=== PATIENT | female | born 1935 | race Caucasian/White ===

== ENCOUNTER 2018-09-07 10:25 | Outpatient (CLI) | payer MEDICARE ==
[~2018-09-07 10:25] MED LIST: Gadobenate Dimeglumine 529 MG/1 ML (20ML VIAL) ONE
--- NOTE | 2018-09-07 13:02 | MRI ---
MRI BRAIN WITH AND WITHOUT CONTRAST: HISTORY: Unspecified sensorineural hearing loss. Sudden onset of right ear hearing loss after sneezing in Jun. COMPARISON: None. TECHNIQUE: A brain MRI is performed with and without intravenous Gadolinium administration. Multisequential, mu ltiplanar imaging is performed. FINDINGS: BRAIN MRI: Calvarium has a normal T1 marrow signal intensity. Midline brain parenchymal structures are unremark able. There are T1 isointense, T2 hypointense lesions scattered throughout the scalp which do exhibit assoc iated enhancement. Cutaneous hemangiomas or other dermal lesions should be considered. There is no parenchymal mass, mass effect, or midline shift. Brain volume is age appropriate. Corti campos ramirez-white matter differentiation is preserved. The ventricles and sulci are patent and symmetric. Central arterial flow voids are maintained. Absent restricted diffusion. Adequate aeration of the s inuses and mastoid air cells. T2 and FLAIR white matter hyperintensities, likely due to chronic small-vessel ischemic change. No p athologic enhancement of the brain parenchyma. Remote cavitary lacunar infarct involving the inferio r aspect of the right lentiform nucleus. INTERNAL AUDITORY CANAL MRI: There is symmetric signal intensity of the internal auditory canal and inner ear structures. There i s no abnormal enhancement. There is no abnormal enhancement with regards to the 7th/8th as well as 5 th cranial nerve complexes bilaterally. IMPRESSION: 1. Unremarkable MRI of the internal auditory canals. No abnormal enhancement. 2. No pathologic enhancement of the brain parenchyma. Absent restricted diffusion. No acute infarc t. 3. Chronic small-vessel ischemic changes of the white matter are noted. 4. Enhancing foci scattered throughout the scalp likely representing cutaneous vascular lesions. Co rrelate clinically. POS: SHELBY
== END 2018-09-07 10:26 | disposition home or self-care (01) ==
LOC: SCSMRI 10:25
PROVIDERS: ATTEND Otolaryngology Plastic Surgery within the Head & Neck
DX: H90.5 Unspecified sensorineural hearing loss (principal); I67.82 Cerebral ischemia
CPT/HCPCS: 70553; 82565; A9577

== ENCOUNTER 2019-06-22 13:05 | Outpatient (CLI) | payer MEDICARE ==
--- NOTE | 2019-06-22 14:05 | RAD ---
Exam: Chest 2 views: HISTORY: Dyspnea COMPARISON: [employer] from a chest CT, 10/22/2004 FINDINGS: Left subclavian catheter injection port. Surgical clips in the right chest wall and axilla. There is evidence for some left pleural fluid and/or pleural thickening with some elevation of the right hemidiaphragm region. Heart size is within normal limits. There are some interstitial and linear and reticular nodular parenchymal changes bilaterally having more of an old appearance. There is some rotation to the left. IMPRESSION: Mostly pleural opacity changes in the right base. Patchy interstitial and reticular nodular parenchym al changes bilaterally. Heart size within normal limits. No confluent lobar pneumonia.
== END 2019-06-22 13:06 | disposition home or self-care (01) ==
LOC: RAD 13:05
PROVIDERS: ATTEND Internal Medicine
DX: R06.00 Dyspnea, unspecified (principal); R91.8 Other nonspecific abnormal finding of lung field
CPT/HCPCS: 71046

== ENCOUNTER 2019-06-24 06:19 | Day surgery (SDC) | payer MEDICARE ==
[2019-06-24] MEDS ORDERED: Lidocaine 1% (PF) 30 ML VIAL ONE (07:23)
--- NOTE | 2019-06-24 08:49 | RAD ---
RADIOGRAPH CHEST 2 VIEW: DATE: 06/24/2019 HISTORY: 84-year-old female status post right thoracentesis for right pleural effusion. COMPARISON: 06/22/2019 FINDINGS: The right pleural effusion has decreased in volume, and is now tiny. There is cardiomegaly. There is no evidence of airspace density, pulmonary edema, left pleural effusion, or pneumothorax. Again noted are the right axillary surgical clips in the left subclavian implantable vascular access port w ith distal tip at the confluence of the brachiocephalic veins. IMPRESSION: 1) No acute pulmonary findings. 2) cardiomegaly without congestive heart failure. 3.) Interval decrease in volume of the small right pleural effusion, now tiny, without pneumothorax, after right pleurocentesis.
[2019-06-24 12:18] LABS: Fluid, Protein 2.8 g/dL (Not Available)
[2019-06-24 12:24] LABS: RBC Count-Automated (BF) 779 /cumm; WBC/Nucleated-Auto (BF) 631 uL
[2019-06-24 12:40] LABS: Body Fluid Source Pleural Fluid
[2019-06-24 12:41] LABS: BF Color Yellow; Clarity Hazy (Clear); Tube # EDTA
[2019-06-24 12:43] LABS: BF Segmented Neutrophils 22 %; Cell Count Non Hematic 25 %; Lymphocytes 51 %
--- NOTE | 2019-06-24 13:23 | OP ---
DATE OF PROCEDURE: 06/24/2019 SERVICE: Pulmonary Medicine. PROCEDURE PERFORMED: Right-sided pleural drainage with catheter insertion under ultrasound guidance. PREPROCEDURE DIAGNOSIS: Pleural effusion, not otherwise specified. POSTPROCEDURE DIAGNOSIS: Pleural effusion, not otherwise specified. DESCRIPTION OF PROCEDURE: A time-out was performed identifying the correct procedure and patient with name and date of . Vital sign monitoring was accomplished by telemetry and continuous pulse oximetry. The patient was placed in the seated position and her right posterior back was examined using ultrasound probe. A pleural fluid was easily identified. She was subsequently prepped and draped in sterile fashion and anesthetized with 1% lidocaine without epinephrine. A finder needle was inserted into the pleural space, and there was removal of clear yellow fluid. A pleural drainage catheter was inserted in the same location, and a total quantity of 1000 mL of the clear yellow fluid was withdrawn by syringe pump technique. A sample was sent for analysis. At the end of the procedure, the fluid stopped coming, and the estimated pleural pressures were -18 cm of pleural fluid. The intact catheter was withdrawn on exhalation, and a sterile dressing was applied. The patient tolerated the procedure well without any immediate complications. ESTIMATED BLOOD LOSS: 2 mL. DISPOSITION: The patient will be discharged from Day Stay when she meets criteria. Job ID: [id number]
== END 2019-06-24 08:45 | disposition home or self-care (01) ==
LOC: SDC 06:19
PROVIDERS: ATTEND Internal Medicine
PROC: 0W993ZZ Drainage of Right Pleural Cavity, Percutaneous Approach (ICD-10-PCS; principal; 2019-06-24)
DX: J90 Pleural effusion, not elsewhere classified (principal); I48.91 Unspecified atrial fibrillation; I50.32 Chronic diastolic (congestive) heart failure; G62.9 Polyneuropathy, unspecified; Z90.710 Acquired absence of both cervix and uterus; Z85.3 Personal history of malignant neoplasm of breast; Z79.899 Other long term (current) drug therapy
CPT/HCPCS: 32555; 71046; 82945; 83615; 83986; 84157; 85060; 87070; 87116; 87205; 87206; 89051; J2001

== ENCOUNTER 2019-07-16 13:26 | Inpatient (IN) | payer MEDICARE ==
--- NOTE | 2019-07-16 15:03 | RAD ---
Chest one view HISTORY: Dyspnea. COMPARISON: 06/24/2019. FINDINGS: Right cardiac margin is now more obscured by infiltrate at the right infrahilar level and i ncreasing opacity at the inferior aspect of the right hemithorax.. There is leftward deviation of the mediastinum. Calcification in the aorta. Pulmonary vasculature is upper limits of normal. Left subclavian Port-A-Cath is in place. No evidence of pneumothorax. Metallic clips at the right axi lla. IMPRESSION : Reaccumulating right pleural fluid. At least moderate sized pleural effusion. Borderline pulmonary vascular congestion. Atherosclerosis.
[2019-07-16 15:20] LABS: Hemoglobin 4.8 g/dL (12.0-16.0); INR-International Normal Ratio 3.8; Mean Corpuscular HGB CONC 29.8 g/dL (32.0-36.0); Mean Corpuscular Hemoglobin 22.4 pg (27.0-31.0); Mean Corpuscular Volume 74.9 fL (78.0-98.0); Mean Platelet Volume 9.3 fL (7.4-10.4); PTT 78.2 SEC (22.9-36.1); Platelet Count 1221 thou/uL (130-400); Prothrombin Time 37.1 SEC (12.0-14.7); RBC Distribution Width 27.4 % (11.5-14.5); Red Blood Cell (RBC) Count 2.13 mill/uL (4.20-5.40); White Blood Cell (WBC) Count 27.7 thou/uL (4.8-10.8)
[2019-07-16 15:39] LABS: Anisocytosis MODERATE=16-30 cells (100X) (0-5/hpf); Band 12 % (5-11); Elliptocytes SLIGHT = 2-5 cells (100X) (0-1/hpf); Eosinophils 2 % (0-10); Hypochromia SLIGHT = 6-15 cells (100X) (0-5/hpf); Large Platelets SLIGHT; Lymphocytes 9 % (21-51); MDiff Complete? YES; Microcytosis SLIGHT = 6-15 cells (100X) (0-5/hpf); Monocytes 2 % (0-10); Myelocyte 1 % (0-0); Neutrophil 73 % (42-75); Nucleated RBC 4 % (0); Ovalocytes SLIGHT = 2-5 cells (100X) (0-1/hpf); Platelet Morphology Comment Appears Increased; Polychromasia MODERATE = 3-4 cells (100X) (0-2/hpf); Reflex for Review?? YES; Target Cells SLIGHT = 2-5 cells (100X) (0-1/hpf)
[2019-07-16 16:12] LABS: Iron 11 ug/dL (50-170); Iron Binding Capacity, Total 345 mcg/dL (265-497)
[2019-07-16 16:36] LABS: BUN (Urea Nitrogen) 51 mg/dL (9.8-20.1)
[2019-07-16 16:40] LABS: ALT (SGPT) 10 U/L (8-55); AST (SGOT) 28 U/L (5-34); Albumin 3.2 g/dL (3.4-4.8); Alkaline Phosphatase 43 U/L (40-110); Anion Gap 17 mmol/L (10-20); Bilirubin, Total 0.5 mg/dL (0.2-1.2); CK (CPK) 17 U/L (29-168); Calc. Creatinine Clearance 0 mL/min (70-130); Calcium 8.6 mg/dL (7.8-10.44); Carbon Dioxide 21 mmol/L (23-31); Chloride 105 mmol/L (98-107); Estimated GFR-MDRD 43; Globulin 2.4 g/dL (2.4-3.5); Glucose 135 mg/dL (83-110); Potassium 4.5 mmol/L (3.5-5.1); Protein, Total 5.6 g/dL (6.0-8.3); Sodium 138 mmol/L (136-145)
[2019-07-16] MEDS ORDERED: Ondansetron PF 4 MG/2 ML Vial IVP PRN (17:38)
[2019-07-16] MEDS ORDERED: Guaifenesin DM 100-10/5 ML UDCUP PO PRN (17:38)
[2019-07-16] MEDS ORDERED: Acetaminophen 325 MG TAB PO PRN (17:38)
[2019-07-16 18:39] VITALS: BMI 38.7
--- NOTE | 2019-07-16 20:48 | HP ---
REASON FOR ADMISSION: Acute blood loss anemia, GI bleed with melena, elevated WBC and platelet count with possible underlying bone marrow disorder, and acute kidney injury. HISTORY OF PRESENTING ILLNESS: The patient gives history of having worsening shortness of breath even on minimal exertion. She had to stop every few steps, stand and relax prior to proceeding even inside the house. She also felt dizzy and feared she would fall. The patient finally called EMS and was brought here. She also mentions that she has been having dark stools and had gone to see her primary care physician, Dr. Duque, who advised her to go to the emergency room a week back. The patient did not want to come to the ER and wanted to wait for some more time. She has had prior thoracentesis on the right side x2 with removal of 1 L on each occasion. The last one was done by Dr. Liao and it appears to be a transudate. The patient states her breast cancer is in remission from 2003. She has seen Dr. Thomas in the past and has seen other oncologists once Dr. Thomas left which she cannot recall. PAST MEDICAL AND SURGICAL HISTORY: History of CHF and follows up with Dr. Arzate; chronic atrial fibrillation, on Pradaxa; stasis dermatitis of both lower extremities; right upper extremity lymphedema with history of radical mastectomy for breast cancer. She has had prior chemotherapy done as well; recurrent pleural effusion on the right; hysterectomy; thoracentesis x2 this year, the last one being in June with removal of 1 L of serosanguineous fluid on both occasions. MediPort is seen in the left chest wall. CURRENT MEDICATIONS: The patient is on Lasix 40 mg daily, Pradaxa 75 mg twice daily, Toprol-XL 50 mg daily, potassium chloride 20 mEq p.o. daily, vitamin D with calcium daily, B complex daily. ALLERGIES: NO KNOWN DRUG ALLERGIES. PERSONAL HISTORY: Does not abuse alcohol or drugs. No history of smoking. The patient lives alone, but has [facility] and usually ambulates with a cane. FAMILY HISTORY: Mother at the age of 84. She had history of stroke. Father at the age of 90 from [place]. CODE STATUS: The patient wants to be do not attempt to resuscitate. She also has out of hospital DNR and legal paperwork which is at home for patient. Power of completion supervisor, daughters x2. REVIEW OF SYSTEMS: CONSTITUTIONAL: Negative for weight loss or gain, ability to conduct usual activities. SKIN: Negative for rash, itching. EYES: Negative for double vision, pain. ENT/MOUTH: Negative for nose bleeding, neck stiffness, pain, tenderness. CARDIOVASCULAR: Negative for palpitations, dyspnea on exertion, orthopnea. RESPIRATORY: Negative for shortness of breath, wheezing, cough, hemoptysis, fever or night sweats. GASTROINTESTINAL: Negative for poor appetite, abdominal pain, heartburn, nausea , vomiting, constipation, or diarrhea. GENITOURINARY: Negative for urgency, frequency, dysuria, nocturia. MUSCULOSKELETAL: Negative for pain, swelling. NEUROLOGIC/PSYCHIATRIC: Negative for anxiety, depression. ALLERGY/IMMUNOLOGIC: Negative for skin rash, bleeding tendency. PHYSICAL EXAMINATION: GENERAL: The patient is an 84-year-old female, who is currently not in any acute distress. VITAL SIGNS: Blood pressure 122/78, pulse 84 per minute, respiratory rate 20 per minute, temperature 98.3 degrees Fahrenheit, saturating 100% on 2 L nasal cannula. NECK: Supple. No elevated JVD. HEENT: Eyes; extraocular muscles intact. Pallor plus. Oral cavity, mucous membranes are dry. No exudates or congestion. CARDIOVASCULAR SYSTEM: S1, S2 heard. Irregular rhythm. RESPIRATORY SYSTEM: Air entry 1+ bilateral. There is decreased air entry on the right infrascapular area. No rales or wheezes. ABDOMEN: Soft. Bowel sounds heard. No tenderness, rigidity, or guarding. EXTREMITIES: The patient has chronic skin changes in both lower extremities due to venous statis and dermatitis. There is 2+ peripheral edema. The patient has edema in the right upper extremity and is wearing a sleeve. CENTRAL NERVOUS SYSTEM: No gross focal motor deficits noted. The patient is alert, awake, and oriented well. PSYCHIATRIC SYSTEM: Patient's mood is euthymic. No hallucinations or delusions. LABORATORY DATA: Chest x-ray done shows moderate right-sided pleural effusion. H and H 4.8 and 16, platelet count 1221. White count of 27, MCV 74 with 73% neutrophils, 12% bands. PT/INR 37 and 3.8, PTT 78. BUN 51, creatinine 1.2, serum bicarb 21, serum glucose 135. Serum iron 11, TIBC 345, ferritin 21, total bilirubin 0.5. Liver enzymes within normal limits. Albumin is 3.2. EKG done shows atrial fibrillation which is rate controlled at 87 beats per minute, there is RBBB seen. CLINICAL IMPRESSION AND PLAN: The patient will be admitted to [facility] for acute blood loss anemia with history of melena for the last 1 week. She is also on Pradaxa for her atrial fibrillation which will be held for now. She has recurrent effusion on the right side with prior workup revealing to be transudate. She has exertional dyspnea even on minimal exertion, likely a combination of severe anemia and right pleural effusion. We will obtain H and H q.6 hourly, 2 units of packed cell transfusion, Protonix drip and continue Toprol-XL 50 mg as before. She will be on clear-liquid diet for now. We will obtain consultation with Dr. Alegria who is on-call for Gastroenterology. We will also obtain consultation from Dr. Peña Gross, the organ pipe maker metal, and Dr. Han as well to rule out possible myelodysplastic disorder with prior history of breast cancer and chemotherapy. She might likely need a bone marrow aspiration and will await Heme-Onc opinion. Job ID: [id number] [facility]
[2019-07-16] MEDS: Pantoprazole 80 MG in Sodium Chloride 0.9% 100 ML IVPB SCH (22:12)
[2019-07-17 03:54] LABS: INR-International Normal Ratio 2.5; Prothrombin Time 26.9 SEC (12.0-14.7)
[2019-07-17 03:55] LABS: PTT 55.6 SEC (22.9-36.1)
[2019-07-17 04:09] LABS: ALT (SGPT) 9 U/L (8-55); AST (SGOT) 25 U/L (5-34); Albumin 2.6 g/dL (3.4-4.8); Alkaline Phosphatase 35 U/L (40-110); Anion Gap 9 mmol/L (10-20); BUN (Urea Nitrogen) 49 mg/dL (9.8-20.1); Bilirubin, Total 1.4 mg/dL (0.2-1.2); Calc. Creatinine Clearance 67 mL/min (70-130); Carbon Dioxide 27 mmol/L (23-31); Chloride 107 mmol/L (98-107); Estimated GFR-MDRD 50; Globulin 2.4 g/dL (2.4-3.5); Glucose 115 mg/dL (83-110); Potassium 3.9 mmol/L (3.5-5.1); Sodium 139 mmol/L (136-145)
[2019-07-17 06:03] LABS: Hemoglobin 6.3 g/dL (12.0-16.0)
[2019-07-17] MEDS ORDERED: IDARUCIZUMAB 2.5 GM/50 ML VIAL IV SCH (08:45)
--- NOTE | 2019-07-17 10:19 | CON ---
DATE OF CONSULTATION: 07/17/2019 HISTORY OF PRESENT ILLNESS: Ms. Tamez is an 84-year-old female with a history of breast cancer, treated in 2003 with chemotherapy. She has been in remission since then, but has not had followup with Oncology in some time. She presents to the hospital with increasing shortness of breath as well as presyncope. She has not passed out, but has been very weak for a couple of weeks. She is on Pradaxa for atrial fibrillation, and when she called her primary care doctor last week, they did instruct her to go to the emergency room. She did wait a little bit longer because she did not think she was out sick, but then decided to come in yesterday and was found to have a hemoglobin of 4.8 on admission. She has now received some blood and her hemoglobin is 6.3. Notably, her white blood cell count was 27,000 and her platelet count was over a million. This is why we were consulted. She is feeling much better since getting the blood. She still feels somewhat short of breath. She is somewhat chronically weak, but states she has been weaker lately. She has never had a colonoscopy. She does have a history of diverticulitis. PAST MEDICAL HISTORY: 1. Atrial fibrillation, on chronic anticoagulation. 2. History of breast cancer, I do not have these records, but she was treated with chemotherapy in 2003. 3. Congestive heart failure. 4. Right upper extremity lymphedema secondary to mastectomy and radiation. 5. Chronic pleural effusions status post thoracenteses x2, thought to be transudative and not malignant. CURRENT MEDICATIONS: 1. She was on Pradaxa as an outpatient, but this has been stopped. 2. Tylenol p.r.n. 3. Robitussin p.r.n. 4. Metoprolol 50 mg p.o. daily. 5. Praxbind 5 g IV x1. 6. Zofran 4 mg IV q.6 h. p.r.n. 7. Protonix 80 mg IV daily. ALLERGIES: NO KNOWN DRUG ALLERGIES. SOCIAL HISTORY: She denies tobacco or alcohol use. No recent exposures. FAMILY HISTORY: Noncontributory. REVIEW OF SYSTEMS: Otherwise 10-point review of systems is negative. PHYSICAL EXAMINATION: VITAL SIGNS: O2 saturation 98% on 2 L nasal cannula, blood pressure 129/66, heart rate 95, blood pressure 131/61, and temperature 98.2. GENERAL: She is quite pleasant, in no acute distress. Hard of hearing. HEENT: Extraocular muscles are intact. Pupils equal, round, and reactive to light. NECK: She has no lymphadenopathy in her neck. The rest of the exam is deferred secondary to the coronavirus pandemic. LABORATORY DATA: White blood cell count 27,000, hemoglobin 4.8, MCV 74, and platelets 1.2 million. INR 3.8. Sodium 139, potassium 3.9, chloride 107, CO2 of 27, BUN 49, creatinine 1.0, glucose 115, and calcium 8.0. Total bilirubin 1.4, AST 25, ALT 9, alkaline phosphatase 35, total protein 5.0, and albumin 2.6. Chest x-ray done in the emergency room shows reaccumulating right pleural fluid with a moderate-sized pleural effusion and borderline pulmonary vascular congestion. ASSESSMENT: Ms. Tamez is an 84-year-old female with: 1. Gastrointestinal bleed secondary to Pradaxa. 2. Thrombocytosis secondary to iron deficiency. 3. Leukocytosis of unknown etiology, possibly stress reaction with a normal WBC in 03/2019. 4. History of congestive heart failure with atrial fibrillation. 5. Chronic right pleural effusion. PLAN: 1. GI has been consulted. I have discussed the case with them. We will leave it up to them whether or not she needs a colonoscopy and EGD, it is obvious that she is bleeding. 2. The Pradaxa is being held, and eventually Cardiology will need to be consulted for further recommendations on anticoagulation, but for now would obviously continue to hold this. 3. I think her platelets are elevated because of her bleed and iron deficiency. We will need to follow these over time. I do not think she needs a bone marrow biopsy currently. 4. We will follow her CBC, assuming that the bleeding stops and her hemoglobin comes up. Her platelets should return to normal as well, and if needed, we can follow her up as an outpatient. 5. We will follow peripherally. Job ID: [id number]
[2019-07-17 11:54] LABS: Hemoglobin 7.2 g/dL (12.0-16.0)
[2019-07-17] MEDS ORDERED: GoLYTELY 4,000 ml Bottle PO SCH (13:45)
--- NOTE | 2019-07-17 14:13 | PDOC.HOSPP ---
- Subjective Encounter Date: 07/17/19 Encounter Time: 10:30 Subjective: awake, no sob or palp no bm after hospitalization is npo - Objective Vital Signs & Weight: Vital Signs (12 hours) Temp Pulse Ox 07/17/19 11:32 98.8 F 07/17/19 08:00 98 07/17/19 07:16 98.2 F 07/17/19 06:25 98.2 F 07/17/19 03:27 98.3 F Weight Weight 226 lb Most Recent Monitor Data Heart Rate from ECG 78 NIBP 124/66 NIBP BP-Mean 85 Respiration from ECG 12 SpO2 98 I&O: 07/16/19 07/17/19 07/18/19 06:59 06:59 06:59 Intake Total 350 Output Total 650 Balance -300 Result Diagrams: 07/17/19 11:41 07/17/19 03:14 Hospitalist ROS - Medication Medications: Active Medications Generic Name Dose Route Start Last Admin Trade Name Freq PRN Reason Stop Dose Admin Pantoprazole Sodium 80 mg/ 100 mls @ 10 mls/hr 07/16/19 20:30 07/16/19 22:12 Sodium Chloride IVPB 100 mls INF JUSTO Administration Metoprolol Succinate 50 mg 07/17/19 09:00 07/17/19 09:53 Toprol Xl PO 50 mg DAILY JUSTO Administration Sodium Chloride 10 ml 07/17/19 09:00 07/17/19 09:53 Flush - Normal Saline IVF 10 ml Q12HR JUSTO Administration - Exam General Appearance: awake alert Eye: PERRL, anicteric sclera ENT: no oropharyngeal lesions, moist mucosa Neck: supple, no JVD Heart: no murmur, irregular Respiratory: no wheezes, no rales Respiratory - other findings: decrease air entry right infrascapular area Gastrointestinal: soft, non-tender, normal bowel sounds, no guarding, no rigidity Extremities: no cyanosis, 2+ LE edema Neurological: cranial nerve grossly intact, no focal deficits Psychiatric: normal affect, A&O x 3 Hosp A/P (1) Acute blood loss anemia Code(s): D62 - ACUTE POSTHEMORRHAGIC ANEMIA Status: Acute (2) GI bleed Code(s): K92.2 - GASTROINTESTINAL HEMORRHAGE, UNSPECIFIED Status: Acute Qualifiers: GI bleed type/associated pathology: unspecified gastrointestinal hemorrhage type Qualified Code(s): K92.2 - Gastrointestinal hemorrhage, unspecified (3) Afib Code(s): I48.91 - UNSPECIFIED ATRIAL FIBRILLATION Status: Chronic Qualifiers: Atrial fibrillation type: longstanding persistent Qualified Code(s): I48.11 - Longstanding persistent atrial fibrillation (4) H/O malignant neoplasm of breast Code(s): Z85.3 - PERSONAL HISTORY OF MALIGNANT NEOPLASM OF BREAST Status: Chronic (5) Chronic venous stasis dermatitis of both lower extremities Code(s): I87.2 - VENOUS INSUFFICIENCY (CHRONIC) (PERIPHERAL) Status: Chronic (6) Pleural effusion, right Code(s): J90 - PLEURAL EFFUSION, NOT ELSEWHERE CLASSIFIED Status: Acute (7) Obesity (BMI 30-39.9) Code(s): E66.9 - OBESITY, UNSPECIFIED Status: Chronic (8) HTN (hypertension) Code(s): I10 - ESSENTIAL (PRIMARY) HYPERTENSION Status: Chronic Qualifiers: Hypertension type: essential hypertension Qualified Code(s): I10 - Essential (primary) hypertension - Plan she recieved 2 u prbc then praxbind as coags were still high serial h/h cardiology consultation will not start on anticoagulation unless cardio has compelling reason to give likely has chronic thrombocytoses, onc outpt f/u in 6 weeks with repeat labs when stable will see her today hemostable PT/OT eval in am and mobilize as tolerated
--- NOTE | 2019-07-17 15:08 | PDOC.THORA ---
Thoracentesis Procedure Note - Procedure Date: 07/17/19 Time: 15:07 - PreProcedure Diagnosis: Right thoraceentesis - PostProcedure Diagnosis: Right pleural effusion - Description Patient tolerated procedure: other (none)
--- NOTE | 2019-07-17 15:28 | CON ---
DATE OF CONSULTATION: 07/17/2019 CHIEF COMPLAINT: Increasing shortness of breath and right pleural effusion. PRESENT ILLNESS: Ms. Tamez is an 84-year-old female with a remote history of breast cancer in remission. She was admitted to [facility] earlier this year with increasing shortness of breath. At that time, she had a pleural effusion and underwent thoracentesis. Symptomatically, she felt better , but the fluid reaccumulated and noted that thoracentesis was done about a month ago by Dr. Conde. The patient was told that the fluid did not contain malignant cells , but otherwise is not aware of a specific etiology. She has now had increasing shortness of breath over about a one or two week period of time. She has not had any cough or purulent sputum, but has had significant breathlessness on room to room basis. She has had mild PND and orthopnea. She presented to the hospital now and has evidence of reaccumulation of her right effusion. She is additionally noted to be quite anemic with initial hemoglobin of 6.4. This has not been seen previously. She is on Pradaxa for atrial fibrillation prophylaxis and for at least several days has noted very dark melena stool, but no bright red blood per rectum and no evidence of hematemesis. She has not had any abdominal pain or discomfort. SOCIAL HISTORY: The patient is an 84-year-old female. She has no smoking history. She does not drink and she lives independently. MEDICATIONS: Her home medicines include; 1. Lasix 40 daily. 2. Pradaxa 75 daily. 3. Toprol 50 daily. 4. Potassium 20 mEq daily. 5. Vitamin D with calcium. 6. Multivitamin. PAST MEDICAL HISTORY: Remarkable for chronic atrial fib, on anticoagulant therapy. She has a diagnosis of heart failure, although the patient is not aware of that diagnosis or of her underlying EF. She has a history of chronic stasis dermatitis and lymphedema of her legs as well as lymphedema of the right arm following a radical mastectomy in 2003. She does not have a history of diabetes. She has not had any falls or chest trauma. She denies a history of prior stroke. She is on oxygen at night but not at the daytime. FAMILY HISTORY: Not pertinent to this diagnosis. CODE STATUS: The patient wishes DNR and has a medical power of associate attorney. REVIEW OF SYSTEMS: Remarkable for increasing shortness of breath and fatigue with some PND and orthopnea as above. She also reports recent notice of melena stool , but no abdominal pain. She has no symptoms to suggest a DVT. PHYSICAL EXAMINATION: VITAL SIGNS: Blood pressure currently 131/61, heart rate 95, saturation 98% on 2 L of oxygen. She is afebrile. Weight is 226 pounds with BMI of 39. GENERAL: She is slightly hard of hearing, lady, in no distress. She is alert, oriented, and appropriate. HEENT: Shows no icterus. She does have somewhat pale conjunctiva and oropharynx, but the oropharynx is moist. NECK: She has no JVD or adenopathy. LUNGS: Show decreased breath sounds with dullness in the right posterior chest. The left is grossly clear. There is no wheezing. She is not using accessory muscles. HEART: Irregular with underlying atrial fib. I do not hear a murmur nor a gallop. ABDOMEN: Obese. There is no organomegaly. No mass or guarding is present. Bowel sounds are normal. EXTREMITIES: Show lymphedema sleeve on the right arm. She has compression stockings of the feet bilaterally with what appears to be early lymphedema of her legs. LABORATORY DATA: Initial presenting hemoglobin was 4.8, now up to 6.3 after transfusion. White count is 27,000, platelet count 1.2 million. Protime is elevated consistent with her Pradaxa therapy. She has now received reversal therapy. Electrolytes normal except for BUN of 49 with an underlying creatinine 1.0, bilirubin is trivially elevated at 1.4. Chest x-ray shows surgical clips after mastectomy on the right. She has a right subpulmonic pleural effusion which is moderate to large. Some may be related to elevation of the hemidiaphragm, but clearly there is a large effusion present. IMPRESSION: 1. Recurrent pleural effusion of unknown etiology. It is reported this is a transudate and as such, I might suspect she has heart failure, but I do not see an old echocardiogram. I think that the thoracentesis is indicated for both diagnostic and therapeutic reasons. Long-term she will need followup in the clinic and has an upcoming appointment with Dr. Rust. 2. Severe anemia. She has been on Pradaxa and appears to have upper GI bleed manifested by her melena. Her Pradaxa is held and she is on antiulcer therapy and GI consultation is anticipated. She is receiving transfusion. She has tolerated this dramatic anemia as well or better than I might otherwise expect. 3. History of chronic atrial fibrillation, on anticoagulation therapy. Long- term decision regarding treatment is deferred to Cardiology. 4. Remote history of breast cancer without known recurrence. 5. Thrombocytosis, probably reactive. PLAN: Plan is to do a therapeutic and diagnostic thoracentesis today. She is off her anticoagulant therapy and GI consultation is pending as well as hematology consultation. She already has home oxygen. If her fluid continues to reaccumulate, she is going to need further evaluation, possibly to include thoracoscopy and pleurodesis. Job ID: [id number] MTDD
[2019-07-17 16:34] LABS: RBC Count-Automated (BF) 381 /cumm; WBC/Nucleated-Auto (BF) 632 uL
[2019-07-17 16:43] LABS: Fluid, pH - Pleural Fld Greater than 7.50 (7.60 - 7.66)
[2019-07-17 16:55] LABS: Pleural Fluid, Protein 1.9 g/dL
[2019-07-17 16:56] LABS: BF Color Yellow; Body Fluid Source Pleural Fluid; Clarity Hazy (Clear); Tube # EDTA
[2019-07-17 17:35] LABS: BF Segmented Neutrophils 39 %; Cell Count Non Hematic 29 %; Eosinophils 1 %; Lymphocytes 28 %
[2019-07-17] MEDS: Pantoprazole 80 MG in Sodium Chloride 0.9% 100 ML IVPB SCH (19:12)
--- NOTE | 2019-07-17 19:31 | CON ---
DATE OF CONSULTATION: 07/17/2019 REASON FOR CONSULTATION: Severe anemia. HISTORY OF PRESENT ILLNESS: Ms. Tamez is an 84-year-old female with history of breast cancer remotely treated in 2004 with chemotherapy and has been in remission since that time. She was admitted to the hospital with a hemoglobin around 4 after having a hemoglobin of 13.5 in March of 2019. She has been on Eliquis for several years for history of atrial fibrillation. Apparently, she began to have a feeling of weakness, dizziness, and shortness of breath this past week, especially with any exertion whatsoever. She had something similar a few weeks ago and had been brought in for thoracentesis by Dr. Liao, her alarm signaler, at that time, which showed a transudative effusion. The patient notes that she had some black stools over the past week or so. She had called her PCP, Dr. Duque and he did advise her to go to the emergency room, but she did not want to go and waited secondary to COVID-19. Presently when she presented here, she had a hemoglobin of 4.8 and INR of 3.8 with a PTT of 78 and a PTT of 37, BUN of 51 and a creatinine of 1.2, and there was a concern that she was possibly having upper GI bleed. She was transfused 2 units of blood yesterday evening and being observed. She has really had no bowel movements overnight or since she has been hospitalized. As her INR was still elevated and she was found to have a large right-sided pleural effusion again and could not lie flat, the decision has been made for her to have a thoracentesis again, so she was given idarucizumab, which is a reversal agent for the Pradaxa. I talked with the patient. She has had no vomiting, nausea, lack of appetite, or loss of weight. She has been taking no NSAIDs. In talking to her daughter, Elda, she states that she was surprised that she was anemic because she was in the hospital just recently at the [facility], at which time they did not mention any problems with anemia. She was also here at this hospital as outpatient for thoracentesis on 06/23, but there was no CBC drawn at that time. She states at the first thoracentesis at the [facility] that they brought the issues of heart failure. She does not recall what tests were done. In the past, she had been seen by Dr. Arzate for atrial fibrillation. No records with regard to that are available. The patient did have an echocardiogram this morning and the results of which are pending. The patient presently is very stable. She is resting comfortably. PAST MEDICAL HISTORY: 1. Atrial fibrillation, chronic, for which she has been on Pradaxa for many years. 2. Stasis dermatitis of both lower extremities. 3. Right upper extremity lymphedema related to previous radical mastectomy and radiation. 4. New recurrent pleural effusion on the right, worked up this year initially during hospitalization at the [facility] and more recently with outpatient thoracentesis here. This has reportedly been transudative both times, serosanguineous fluid. 5. Dr. Liao's note from his office shows chronic diastolic heart failure, peripheral neuropathy as well, and recurrent right-sided effusion. PAST SURGICAL HISTORY: Right mastectomy, hysterectomy. HOME MEDICATIONS: 1. Pradaxa, stopped in this admission, just yesterday. 2. Tylenol. 3. Robitussin. 4. 150 mg b.i.d. 5. Metoprolol 100 mg daily. 6. Furosemide. 7. Calciferol. 8. Potassium chloride. 9. Diltiazem 240 mg daily. PRESENT MEDICATIONS: 1. Toprol 50 p.o. daily. 2. Praxbind was given today. 3. Zofran p.r.n. 4. Protonix drip. ALLERGIES: NONE KNOWN. SOCIAL HISTORY: She lives alone, has [facility]. Daughter is very involved in her care. She does not smoke, drink, or use drugs. She lived here since 1960s. FAMILY HISTORY: Mother had stroke at 84. Father at 90 with a heart attack. The patient does have a DNR status. The daughter is her power of attorney recruiter. REVIEW OF SYSTEMS: As per HPI. Otherwise, CARDIOVASCULAR: Negative for chest pain. Positive for dyspnea on exertion. Positive for orthopnea. Negative for palpitations. RESPIRATORY: Negative for cough, wheezing, hemoptysis, night sweats, viral-like illness, or sore throat. GENITOURINARY: Negative for dysuria, frequency, or urgency. MUSCULOSKELETAL: Notable for swelling of the legs, chronic. SKIN: Without rashes, lesions, or bleeding tendencies. NEUROLOGIC: No prior history of strokes or vision changes. PHYSICAL EXAMINATION: VITAL SIGNS: Temperature is 98.8, heart rate 78, blood pressure 124/66. GENERAL: The patient is pleasant, resting comfortably in bed. She is a little bit hard of hearing, but if I talk loud, she hears pretty well. NECK: There is no evidence of JVD. LUNGS: Clear. HEART: Regular rate, irregular rhythm without clicks or murmurs. ABDOMEN: Soft and nontender. There is no palpable hepatosplenomegaly. EXTREMITIES: She has some dressings on her legs and chronic stasis edema. NEUROLOGIC: She is alert oriented to person, place, and time. LABORATORY STUDIES: Thoracentesis from 06/23 shows 631 white count, 770 red blood cells, total protein, glucose 108, protein of 2.8, LDH of 163. Labs on admission: Sodium 138; potassium 4.5; BUN and creatinine 51 and 1.2, baseline is 26 and 1.04; glucose 135. Iron 11, TIBC 345, ferritin 21. AST and ALT 28 and 10. Creatine kinase 17. BNP 320. Protein 5.6, albumin 3.2. TSH was 2.8 back in March. INR this morning was 2.5 down from 3.8, PT was 26.9, and PTT 55. White count was 27,000 on admission, hemoglobin was 4.8, and platelet count was 1221. These were 10.2, 13.5, and 791 on 04/07 and 9.8, 14.8, and 359 on 03/08/2018. Today, her hemoglobin is back up to 7.2. The other labs have not been checked. Chest x-ray on admission showed a right pleural effusion, very similar to previous imaging studies. ASSESSMENT: 1. Severe anemia. This is definitely a significant drop since March and likely represents gastrointestinal blood losses. There is some history of black stools over the past week and she has been on blood thinners. She has no alarming features in terms of diet or nonsteroidal anti-inflammatory drug use or weight loss and she is stable now with no signs of acute hemorrhage. She has been reversed on her Pradaxa mainly due to the fact that she is going to have a thoracentesis today. I think with the degree of anemia she has developed quickly she has had developed it and issues surrounding the ongoing use of Pradaxa, I think she is going to need upper and lower endoscopy tomorrow to clarify what is going on. I have talked to the patient's daughter about that and the patient in detail, and they wished to proceed. I have explained the risks, benefits, and possible complications including perforation, bleeding risk, medication aspiration, and cardiopulmonary complications. 2. She has a recurrent right-sided pleural effusion. This appears to be transudative. It seems that there has been some workup before at [facility] in [place], where it may have been echocardiogram or even a CAT scan of chest have been done. Those records are not available and we will request those. 3. Elevated white count and platelets with this acute episode, probably reactive as she has not had any issue of this before. Again, the daughter states that she had labs done back in May at the [facility] and we can see where these issues stood at that time once we get those records. RECOMMENDATIONS: 1. Obtain records in the [facility]. 2. Await echocardiogram here. 3. Agree with plan for thoracentesis today by Pulmonology so that she can be more safe from a cardiorespiratory standpoint for endoscopies tomorrow. 4. Agree with planned reversal of the Pradaxa in light of the thoracentesis. 5. I have discussed the case with Dr. Han, who saw her from a hematology standpoint and thought that the platelets are elevated secondary to bleed and iron deficiency. 6. Hard Candy Batch Mixer will need to be re-involved in her case tomorrow with this ongoing recurrent pleural effusion, which seems to be probably cardiac related in some way. We will defer that to Cardiology and Pulmonology. Job ID: [id number]
[2019-07-18] MEDS: Pantoprazole 80 MG in Sodium Chloride 0.9% 100 ML IVPB SCH (05:04)
[2019-07-18 05:28] LABS: Hemoglobin 6.9 g/dL (12.0-16.0); Mean Corpuscular HGB CONC 30.7 g/dL (32.0-36.0); Mean Corpuscular Hemoglobin 23.9 pg (27.0-31.0); Mean Corpuscular Volume 77.8 fL (78.0-98.0); Mean Platelet Volume 9.2 fL (7.4-10.4); Platelet Count 964 thou/uL (130-400); RBC Distribution Width 23.3 % (11.5-14.5); Red Blood Cell (RBC) Count 2.87 mill/uL (4.20-5.40); White Blood Cell (WBC) Count 20.5 thou/uL (4.8-10.8)
[2019-07-18 05:42] LABS: Anion Gap 10 mmol/L (10-20); BUN (Urea Nitrogen) 35 mg/dL (9.8-20.1); Calc. Creatinine Clearance 65 mL/min (70-130); Carbon Dioxide 26 mmol/L (23-31); Chloride 109 mmol/L (98-107); Estimated GFR-MDRD 51; Glucose 102 mg/dL (83-110); Potassium 3.9 mmol/L (3.5-5.1); Sodium 141 mmol/L (136-145)
[2019-07-18 05:49] LABS: Band 1 % (5-11); Hypochromia SLIGHT = 6-15 cells (100X) (0-5/hpf); Lymphocytes 9 % (21-51); MDiff Complete? YES; Monocytes 10 % (0-10); Neutrophil 80 % (42-75); Platelet Morphology Comment Appears Increased; Polychromasia SLIGHT = 2-3 cells (100X) (0-2/hpf)
[2019-07-18] MEDS ORDERED: Lidocaine 1% PF 5 ML VIAL ONE (09:01)
[2019-07-18] MEDS ORDERED: PROPOFOL 200 MG/20 ML VIAL ONE (09:01)
--- NOTE | 2019-07-18 09:01 | OP ---
DATE OF PROCEDURE: 07/17/2019 PROCEDURE PERFORMED: Right thoracentesis. PREOPERATIVE DIAGNOSIS: Right pleural effusion. POSTOPERATIVE DIAGNOSIS: Right pleural effusion. DESCRIPTION OF PROCEDURE: Following informed consent, the patient was seated at the bedside with the arms resting on a bedside table. The posterior right chest was prepped and draped in the usual fashion. Topical anesthesia obtained with 1% lidocaine. The chest had previously been percussed and area of dullness marked for the procedure. A thoracentesis was then performed using the standard fashion with removal of approximately 1400 mL of clear yellow fluid. The patient tolerated the procedure well without complication. Following the procedure, the fluid was sent for appropriate analysis and a postprocedure x-ray will be obtained. Job ID: [id number]
--- NOTE | 2019-07-18 13:50 | OP ---
DATE OF PROCEDURE: 07/18/2019 PREPROCEDURE DIAGNOSES: 1. Gastrointestinal hemorrhage with melena for about a week before coming in. 2. Hemoglobin of 4 upon admission. Baseline was 13.5 in March and at hospitalization at [facility] in May, she had a hemoglobin of 10. 3. Elevated platelet count and white count, likely reactive. Oncology does not feel that she has a myelodysplastic or myeloproliferative disorder. 4. Over anticoagulation, likely secondary to Pradaxa with an INR of 3.8, a PT of 37, and a PTT of 78 on admission. 5. Right heart failure by echocardiogram with elevated left ventricular end-diastolic pressure of 45 at outside hospital, severe tricuspid regurgitation on echocardiogram here. POSTPROCEDURE DIAGNOSES: 1. EGD normal except for small area short-segment Melton's with no stigmata of bleeding or no risk for bleeding. No signs of upper gastrointestinal bleeding. No AVMs, ulcers, or masses. 2. Coffee-ground material in the colon, normal terminal ileum with yellow bile. Colon cleared with 500 mL of irrigation with sterile water. 3. 2 flat polyps in the cecum and ascending colon about 5 mm to 10 mm in size, removed by cold snare polypectomy. These were rough surface, could have bled with over anticoagulation. There were also 3 other small polyps that were removed by cold snare polypectomy, 5 mm in size, all submitted in one jar. 4. No arteriovenous malformations. 5. Diverticulosis coli, left colon. 6. No active bleeding sites. RECOMMENDATIONS: 1. I would hold her Plavix for a week and then restart. Consider restarting at a lower dose in light of the levels of anticoagulation at least by traditional measures on admission. 2. Heart failure per Cardiology. 3. We will continue Protonix orally after discharge with short-segment Melton's. 4. We will follow up on biopsies. In light of aging comorbidities, would not likely recommend followup colonoscopy in the future unless overt problems. ANESTHESIA: TIVA. PROCEDURE IN DETAIL: After the patient and her daughter were informed of the risks, benefits, and possible complications of endoscopy including perforation, bleeding, reaction to medication, and aspiration as well as the indications that is for severe anemia and GI bleeding, the case was presented to our committee for urgent nonelective procedure in light of the fact that with her heart failure and atrial fibrillation, there will need to be a disposition made for her Pradaxa and the fact that she has not had any endoscopy at least in the last 10 years and seemingly has never had a colonoscopy, high risk for significant lesions, and significant bleeding in the future, case was approved to go forward. The patient was brought to the endoscopy suite and sedated in gradual fashion. A bite block was placed inside the orifice. Before this began, time-out was given and recommendations for were discussed with staff. The endoscope was advanced through the esophagus, stomach, and second and third portions of the duodenum. The esophagus was normal except for short-segment Melton esophagus. No stigmata of bleeding or nodularity on imaging with scope. There was no evidence of Nina-Baez tears or large hiatal hernia. There were no Luc ulcers or erosions. There were no AVMs, polyps, masses, or ulcers in the stomach in forward and retroflexed views. The duodenum was normal to the third portion with yellow bile noted. The scope was then removed after the area was surveyed again. The patient was turned in the room and rectal examination revealed some coffee-ground liquid thin stool. The endoscope was advanced through the anal canal and through the colon. The cecum was identified by ileocecal valve and appendiceal orifice. The old coffee-ground like material was cleared out. The terminal ileum was entered and found to be normal with yellow bile coming from above. There were 2 flat polyps, 5 mm and 10 mm in size, a rough surface. These were removed by cold snare polypectomy. There were 2 other small polyps 5 mm in size in the cecum, removed by cold snare polypectomy. Hemostasis was noted to be good. There was diverticulosis coli, most prominent in the left colon, but some on the right. There was no stigmata of bleeding. There were no AVMs seen. Retroflexed views in the rectum were normal. The scope was removed. The patient tolerated the procedure well without complications. Job ID: [id number]
--- NOTE | 2019-07-18 14:36 | CON ---
DATE OF CONSULTATION: 07/18/2019 REASON FOR CONSULTATION: Recent GI bleed and history of atrial fibrillation, on anticoagulation therapy. HISTORY OF PRESENT ILLNESS: Ms. Tamez is a very pleasant 84-year-old woman, who I have seen and evaluated in the past. She has a history of chronic atrial fibrillation. She recently presented with melena. Her hemoglobin was markedly depressed at 4. She received 3 units of packed red blood cells. She recently underwent EGD, colonoscopy and was found to have small polyps. Ms. Tamez has been on Pradaxa for many years. She has been very well controlled without previous history of anemia. No chest pain or pressure noted. No other associated symptoms. No ameliorating, exacerbating or precipitating factors present. PAST MEDICAL HISTORY: Cpeeeoto-sl-uesnia MR, atrial flutter, status post ablation, chronic atrial fibrillation, lymphedema, mitral insufficiency, stasis dermatitis, obesity. HOME MEDICATIONS: Include 1. Potassium. 2. Diltiazem. 3. Lasix. 4. Toprol. 5. Pradaxa. 6. Losartan. 7. Metolazone. SURGICAL HISTORY: Breast biopsy, modified radical mastectomy, hysterectomy, thoracentesis x2. FAMILY HISTORY: Negative. ALLERGIES: NONE. REVIEW OF SYSTEMS: A 10-point review of systems is reviewed as above, otherwise negative. PHYSICAL EXAMINATION: GENERAL: Patient is a pleasant female who is in no acute distress. The patient appears their stated age. VITAL SIGNS: BP 99/57, pulse NEUROLOGIC: The patient is alert and oriented x3 with no focal neurologic deficits. HEENT: Sclerae without icterus. Mouth has moist mucous membranes with normal pallor. NECK: No JVD. Carotid upstroke brisk. No bruits bilaterally. LUNGS: Clear to auscultation with unlabored respirations. BACK: No scoliosis or kyphosis. CARDIAC: Irregularly irregular. ABDOMEN: Soft, nontender, nondistended. No peritoneal signs present. No hepatosplenomegaly. No abnormal striae. EXTREMITIES: 2+ femoral and 2+ dorsalis pedis pulses. No cyanosis, clubbing, or edema. SKIN: No gross abnormalities. LABORATORY DATA: Initial hemoglobin 4.8, now 6.9; platelet count initially . IMPRESSION: 1. Melena. 2. Chronic atrial fibrillation. RECOMMENDATIONS: Would recommend changing Pradaxa to Eliquis. She would need a 5 mg one p.o. b.i.d. Will be okay from my standpoint to delay restarting anticoagulation therapy for the next 1 to 2 weeks. She has had thoracentesis noted x2. This may be related to moderate mitral regurgitation. This may also be related to diastolic dysfunction in addition to chronic atrial fibrillation. We will try to reduce her fluid intake. Job ID: [id number]
--- NOTE | 2019-07-18 14:39 | PDOC.HOSPP ---
- Subjective Encounter Date: 07/18/19 Subjective: Feels better. - Objective Vital Signs & Weight: Vital Signs (12 hours) Temp Pulse Ox 07/18/19 08:00 97 07/18/19 07:18 97.8 F 07/18/19 03:39 98.6 F Weight Weight 217 lb 2 oz Most Recent Monitor Data Heart Rate from ECG 95 NIBP 103/78 NIBP BP-Mean 86 Respiration from ECG 25 SpO2 94 I&O: 07/17/19 07/18/19 07/19/19 06:59 06:59 06:59 Intake Total 350 4750 Output Total 650 5025 Balance -300 -275 Result Diagrams: 07/18/19 05:10 07/18/19 05:10 Hospitalist ROS - Medication Medications: Active Medications Generic Name Dose Route Start Last Admin Trade Name Freq PRN Reason Stop Dose Admin Metoprolol Succinate 50 mg 07/17/19 09:00 07/18/19 05:10 Toprol Xl PO 50 mg DAILY JUSTO Administration Sodium Chloride 10 ml 07/17/19 09:00 07/17/19 21:24 Flush - Normal Saline IVF 10 ml Q12HR JUSOT Administration - Exam General Appearance: awake alert ENT: normocephalic atraumatic Neck: supple, no JVD Heart: RRR, no murmur, no gallops, no rubs Respiratory: CTAB, no wheezes, no rales, no ronchi Gastrointestinal: soft, non-tender, non-distended, normal bowel sounds Neurological: cranial nerve grossly intact, no weakness Hosp A/P (1) Acute blood loss anemia Code(s): D62 - ACUTE POSTHEMORRHAGIC ANEMIA Status: Acute (2) GI bleed Code(s): K92.2 - GASTROINTESTINAL HEMORRHAGE, UNSPECIFIED Status: Acute Qualifiers: GI bleed type/associated pathology: unspecified gastrointestinal hemorrhage type Qualified Code(s): K92.2 - Gastrointestinal hemorrhage, unspecified (3) Afib Code(s): I48.91 - UNSPECIFIED ATRIAL FIBRILLATION Status: Chronic Qualifiers: Atrial fibrillation type: longstanding persistent Qualified Code(s): I48.11 - Longstanding persistent atrial fibrillation (4) H/O malignant neoplasm of breast Code(s): Z85.3 - PERSONAL HISTORY OF MALIGNANT NEOPLASM OF BREAST Status: Chronic - Plan S/P EGD& 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 Continue PPI. Continue holding Predexa. Recurrent Pleural effusion s/p thoracentesis. Continue management per pulmonology. Hb 6.9 One unit of PRBC being transfused. CHF appears to be stable. Restart lasix.
--- NOTE | 2019-07-18 14:56 | PDOC.MOPN ---
Interval History: sitting in chair, feeling better - Vital Signs Vital Signs: Vital Signs (12 hours) Temp Pulse Ox 07/18/19 08:00 97 07/18/19 07:18 97.8 F 07/18/19 03:39 98.6 F Weight Weight 217 lb 2 oz Most Recent Monitor Data Heart Rate from ECG 95 NIBP 103/78 NIBP BP-Mean 86 Respiration from ECG 25 SpO2 94 - Physical Exam General: Alert, Oriented x3, No acute distress HEENT: Atraumatic, PERRLA, EOMI, Mucous membr. moist/pink Cardiovascular: Regular rate Abdomen: Normal bowel sounds Extremities: Other (edema) Neurological: Normal speech Psych/Mental Status: Mental status NL - Labs Result Diagrams: 07/18/19 05:10 07/18/19 05:10 Lab results: Laboratory Results - last 24 hr 07/18/19 05:10: WBC 20.5 H, RBC 2.87 L, Hgb 6.9 L, Hct 22.3 L, MCV 77.8 L, MCH 23.9 L, MCHC 30.7 L, RDW 23.3 H, Plt Count 964 H*, MPV 9.2, Neutrophils % ( Manual) 80 H, Band Neuts % (Manual) 1 L, Lymphocytes % (Manual) 9 L, Monocytes % (Manual) 10, Lymphocytes # Not Reportable, Hypochromia SLIGHT = 6-15 cells, Plt Morphology Comment Appears Increased H, Polychromasia SLIGHT = 2-3 cells 07/18/19 05:10: Sodium 141, Potassium 3.9, Chloride 109 H, Carbon Dioxide 26, Anion Gap 10, BUN 35 H, Creatinine 1.04, Estimated GFR (MDRD) 51, Glucose 102, Calcium 8.0 07/17/19 16:43: Pleural pH 7.6 07/17/19 15:00: Pleural pH (Resp) Greater than 7.50 07/17/19 15:00: Fluid Source Pleural Fluid, Fluid Tube Number EDTA, Fluid Color Yellow, Fluid Clarity Hazy H, Fluid WBC 632, Fluid RBC 381, Fluid Seg Neutrophil % 39, Fluid Lymphocytes % 28, Fluid Eosinophils % 1, Fluid Basophils % 3, Fluid Diff Path Review , Non-Hematological % 29, Fluid Comment Note: 07/17/19 15:00: Pleural Total Protein 1.9, Pleural LDH 114, Pleural Glucose 117 , Pleural Amylase 31 07/16/19 15:23: Blood Type A POSITIVE, Antibody Screen NEGATIVE, Crossmatch See Detail 07/16/19 14:47: Smear Path Review Status: lab reviewed by me A/P - Problem (1) Acute blood loss anemia Current Visit: Yes Code(s): D62 - ACUTE POSTHEMORRHAGIC ANEMIA Status: Acute - Plan Plan: transfused unit of blood today IV iron x 1 recheck CBC in am
[2019-07-18] MEDS ORDERED: Iron, Sodium Ferric Gluconate 250 MG in Sodium Chloride 0.9% 100 ML IVPB SCH (15:15)
[2019-07-18] MEDS ORDERED: Furosemide 20 MG/2 ML VIAL SLOW IVP SCH (15:45)
[2019-07-18] MEDS: Furosemide 20 MG/2 ML VIAL SLOW IVP SCH (20:55)
--- NOTE | 2019-07-18 21:23 | PRG ---
DATE OF SERVICE: 07/18/2019 SUBJECTIVE: Events were reviewed over the weekend. Her pleural effusion was transudative. She underwent endoscopy today. No bleeding was identified. Polyps were resected. PHYSICAL EXAMINATION: Essentially having no respiratory issues. IMPRESSION: 1. Gastrointestinal blood loss. 2. Transudative effusion, status post thoracentesis in the past. Most likely secondary to atrial fibrillation combined with mitral regurgitation. Given that she has this clearly dilated left atrium. She also has significant pulmonary hypertension. PLAN: We will continue supportive care. Job ID: [id number]
[2019-07-19 04:13] LABS: Band 16 % (5-11); Eosinophils 3 % (0-10); Hemoglobin 7.4 g/dL (12.0-16.0); Lymphocytes 8 % (21-51); MDiff Complete? YES; Mean Corpuscular HGB CONC 32.1 g/dL (32.0-36.0); Mean Corpuscular Volume 77.8 fL (78.0-98.0); Mean Platelet Volume 8.9 fL (7.4-10.4); Monocytes 7 % (0-10); Neutrophil 66 % (42-75); Nucleated RBC 3 % (0); Platelet Count 838 thou/uL (130-400); Platelet Morphology Comment Appears Increased; RBC Distribution Width 22.6 % (11.5-14.5); Red Blood Cell (RBC) Count 2.96 mill/uL (4.20-5.40); White Blood Cell (WBC) Count 16.1 thou/uL (4.8-10.8)
[2019-07-19 04:32] LABS: ALT (SGPT) 10 U/L (8-55); AST (SGOT) 27 U/L (5-34); Albumin 2.6 g/dL (3.4-4.8); Alkaline Phosphatase 38 U/L (40-110); Anion Gap 9 mmol/L (10-20); BUN (Urea Nitrogen) 26 mg/dL (9.8-20.1); Calc. Creatinine Clearance 62 mL/min (70-130); Calcium 7.6 mg/dL (7.8-10.44); Carbon Dioxide 29 mmol/L (23-31); Chloride 106 mmol/L (98-107); Estimated GFR-MDRD 48; Globulin 2.4 g/dL (2.4-3.5); Glucose 83 mg/dL (83-110); Potassium 3.4 mmol/L (3.5-5.1); Sodium 141 mmol/L (136-145)
--- NOTE | 2019-07-19 09:31 | PRG ---
DATE OF SERVICE: 07/19/2019 SUBJECTIVE: Ms. Tamez is doing well. No current complaints. OBJECTIVE: VITAL SIGNS: Blood pressure 93/58, pulse 98, respirations 20. LUNGS: Clear to auscultation. HEART: Irregularly irregular. ABDOMEN: Soft, nontender, and nondistended. EXTREMITIES: No edema. IMPRESSION: 1. Gastrointestinal bleed. 2. Atrial fibrillation. RECOMMENDATIONS: We will recommend discontinuing metoprolol in place of Cardizem. The patient was on diltiazem 240 mg p.o. q.a.m. in addition to 100 mg Toprol-XL. Blood pressure is marginal. Hemoglobin remains low at 7.4. I would like to get her back for better rate control, but her increased heart rate and low blood pressure may be multifactorial. I would recommend restarting anticoagulation therapy in the next 1 to 2 weeks. May also consider Watchman as an outpatient, although given the recent COVID crisis, elective procedure is being put on hold. We will continue to monitor closely. Job ID: [id number]
[2019-07-19] MEDS: Furosemide 20 MG/2 ML VIAL SLOW IVP SCH (10:05)
--- NOTE | 2019-07-19 14:56 | PDOC.MOPN ---
Interval History: Doing well, feels better. - Vital Signs Vital Signs: Vital Signs (12 hours) Temp Pulse Ox 07/19/19 11:05 98.0 F 07/19/19 07:28 98 07/19/19 07:10 97.7 F 07/19/19 03:31 97.8 F Weight Weight 213 lb 6.4 oz Most Recent Monitor Data Heart Rate from ECG 97 NIBP 111/61 NIBP BP-Mean 77 Respiration from ECG 22 SpO2 97 - Physical Exam General: Alert, Oriented x3, No acute distress HEENT: Atraumatic, PERRLA, EOMI, Mucous membr. moist/pink Lungs: Clear to auscultation, Normal air movement Cardiovascular: Other (tacycardia) Extremities: Other (2+ edema) Neurological: Normal speech - Labs Result Diagrams: 07/19/19 03:33 07/19/19 03:33 Lab results: Laboratory Results - last 24 hr 07/19/19 03:33: WBC 16.1 H, RBC 2.96 L, Hgb 7.4 L, Hct 23.0 L, MCV 77.8 L, MCH 25.0 L, MCHC 32.1, RDW 22.6 H, Plt Count 838 H, MPV 8.9, Neutrophils % (Manual) 66, Band Neuts % (Manual) 16 H, Lymphocytes % (Manual) 8 L, Monocytes % (Manual ) 7, Eosinophils % (Manual) 3, Nucleated RBCs # (Man) 3 H, Plt Morphology Comment Appears Increased H 07/19/19 03:33: Sodium 141, Potassium 3.4 L, Chloride 106, Carbon Dioxide 29, Anion Gap 9 L, BUN 26 H, Creatinine 1.09, Estimated GFR (MDRD) 48, Glucose 83, Calcium 7.6 L, Total Bilirubin 1.0, AST 27, ALT 10, Alkaline Phosphatase 38 L, Serum Total Protein 5.0 L, Albumin 2.6 L, Globulin 2.4, Albumin/Globulin Ratio 1.1 L 07/16/19 15:23: Blood Type A POSITIVE, Antibody Screen NEGATIVE, Crossmatch See Detail Status: lab reviewed by me A/P - Problem (1) Acute blood loss anemia Current Visit: Yes Code(s): D62 - ACUTE POSTHEMORRHAGIC ANEMIA Status: Acute - Plan Plan: IV iron given yesterday. CBC stable. Start oral iron.
--- NOTE | 2019-07-19 15:25 | PRG ---
DATE OF SERVICE: 07/19/2019 SUBJECTIVE: Ms. Tamez is doing well. Her hemodynamics have been stable. Heart rate is in the 90s, blood pressure is 111/61, respiratory rate is 22. OBJECTIVE: LUNGS: Clear. HEART: Regular rhythm. ABDOMEN: Soft. LABORATORY DATA: White count 16.1, hemoglobin 7.4, platelets 838. Electrolytes; sodium 141, potassium 3.4, chloride 106, bicarb 29, BUN 26, creatinine 1.09. IMPRESSION: 1. Transudative effusion secondary to atrial fibrillation with valvular heart disease. 2. Gastrointestinal blood loss, probably a chronic anticoagulation contraindication. 3. Reactive thrombocytosis. 4. Iron deficiency anemia, status post iron infusion. Her total iron level is 11, TIBC was 345. 5. Her albumin is 2.6, which contributes to her tendency to reaccumulate pleural fluid. We will continue to follow along with the other physicians caring for her. Job ID: [id number]
--- NOTE | 2019-07-19 17:56 | PRG ---
DATE OF SERVICE: 07/19/2019 REASON FOR CONSULTATION: Melena/anemia. SUBJECTIVE: Overnight, the patient did not have any acute events or problems. She has not had any further episodes of GI bleeding either in the form of hematochezia or melena since the EGD and colonoscopy yesterday. Today, she states she is feeling much better with no problems at the current time. Currently, she denies any nausea, vomiting, fevers, chills, abdominal pain, hematemesis, melena, or hematochezia. OBJECTIVE: VITAL SIGNS: Temperature 98.5, pulse 97, blood pressure 111/61, respiratory rate 22, saturating 97% on room air. GENERAL: The patient is lying in bed, in no acute distress. Alert and oriented x4. CARDIOVASCULAR: Irregularly irregular rhythm with no discernible murmurs, gallops, or rubs. RESPIRATORY: Clear to auscultation bilaterally, but with diminished breath sounds in the bilateral lower lung reyes. ABDOMEN: Normoactive bowel sounds. Soft, nontender, nondistended. EXTREMITIES: 1+ bilateral lower extremity edema extending to the bilateral knees. LABORATORY DATA: CBC with a white blood cell count of 16.1, hemoglobin 7.4, hematocrit 23, and platelets 838. Chemistry with a sodium of 141, potassium 3.4, chloride 106, CO2 of 29, BUN 26, creatinine 1.09, and glucose 83. 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 There was some upnbhg-[id number]-[id number] material seen within the colon itself, but no evidence of blood within the terminal ileum, making the lower GI bleeding source more likely. However, careful examination of the colon did not reveal any evidence of active or recent bleeding other than the dark-colored material within the colon. She did have multiple polyps including two seen in the cecum and ascending colon that were removed with cold snare polypectomy. There were three other polyps also seen during the colonoscopy that were also removed. ASSESSMENT AND PLAN: The patient is an 84-year-old female with past medical history of atrial fibrillation, on anticoagulation with Pradaxa; stasis dermatitis of the bilateral lower extremities; right upper extremity lymphedema related to previous radical mastectomy; chronic diastolic heart failure; and peripheral neuropathy; presenting with symptomatic anemia. 1. Symptomatic anemia: The patient initially presented to the hospital with a 2-week history of dark black-colored stools concerning for the presence of melena in light of anticoagulation with Pradaxa. She was also noted to have a supratherapeutic INR on admission that could have contributed to the oozing from any mucosal surface. She did undergo EGD and colonoscopy on July 18, 2019, which did not show any obvious evidence of active or recent gastrointestinal bleeding, although she did have evidence of possible Melton mucosa and colonic polyps, which the polyps were removed at the time of the colonoscopy. In the post-procedure period, the patient has not exhibited any further episodes of gastrointestinal bleeding and has had stabilization of her H and H with infusion of 1 unit of PRBCs yesterday. RECOMMENDATIONS: 1. We would continue to trend her H and H and transfuse as necessary to maintain an H and H of 7/21. 2. Continue to monitor clinically for signs of active GI bleeding. 3. We will continue to hold anticoagulation on this patient for the next week and consider restarting at a lower level given that her volume distribution has significantly diminished over the last 6 months. 4. We will continue the patient on PPI daily. 5. We will follow up on the biopsy results with repeat colonoscopy interval depending on pathology results. However, unless the pathology report shows high-grade lesions, a repeat colonoscopy would not be necessarily recommended given her advanced age and medical comorbidities. Given the stabilization of her H and H and no further episodes of GI bleeding with no GI bleeding seen on upper endoscopy, we will sign off at this time. Please call with any questions. Job ID: [id number]
--- NOTE | 2019-07-19 20:22 | PDOC.HOSPP ---
- Subjective Encounter Date: 07/19/19 Encounter Time: 12:00 Subjective: The patient was seen and examined. She feels better today and Any new complaints. No evidence of active bleeding. - Objective Vital Signs & Weight: Vital Signs (12 hours) Temp Pulse Resp BP Pulse Ox 07/19/19 19:09 98.2 F 93 20 120/58 L 93 L 07/19/19 17:45 97.9 F 83 18 123/58 L 98 07/19/19 15:00 98.5 F 07/19/19 11:05 98.0 F Weight Weight 213 lb 6.4 oz Most Recent Monitor Data Heart Rate from ECG 97 NIBP 111/61 NIBP BP-Mean 77 Respiration from ECG 22 SpO2 97 I&O: 07/18/19 07/19/19 07/20/19 06:59 06:59 06:59 Intake Total 4750 1750 Output Total 5025 2500 Balance -275 -750 Result Diagrams: 07/19/19 03:33 07/19/19 03:33 Hospitalist ROS - Medication Medications: Active Medications Generic Name Dose Route Start Last Admin Trade Name Freq PRN Reason Stop Dose Admin Diltiazem HCl 30 mg 07/19/19 09:30 07/19/19 18:02 Cardizem PO Not Given Q6H JUSTO Metoprolol Succinate 50 mg 07/17/19 09:00 07/19/19 09:47 Toprol Xl PO 50 mg DAILY JUSTO Administration Pantoprazole Sodium 40 mg 07/19/19 09:00 07/19/19 09:47 Protonix PO 40 mg DAILY JUSTO Administration Sodium Chloride 10 ml 07/17/19 09:00 07/19/19 09:47 Flush - Normal Saline IVF 10 ml Q12HR JUSTO Administration - Exam General Appearance: awake alert ENT: normocephalic atraumatic Neck: supple, no JVD Heart: RRR Respiratory: CTAB, no wheezes, no rales, no ronchi Gastrointestinal: soft, non-tender, non-distended Hosp A/P (1) Acute blood loss anemia Code(s): D62 - ACUTE POSTHEMORRHAGIC ANEMIA Status: Acute (2) GI bleed Code(s): K92.2 - GASTROINTESTINAL HEMORRHAGE, UNSPECIFIED Status: Acute Qualifiers: GI bleed type/associated pathology: unspecified gastrointestinal hemorrhage type Qualified Code(s): K92.2 - Gastrointestinal hemorrhage, unspecified (3) Afib Code(s): I48.91 - UNSPECIFIED ATRIAL FIBRILLATION Status: Chronic Qualifiers: Atrial fibrillation type: longstanding persistent Qualified Code(s): I48.11 - Longstanding persistent atrial fibrillation (4) H/O malignant neoplasm of breast Code(s): Z85.3 - PERSONAL HISTORY OF MALIGNANT NEOPLASM OF BREAST Status: Chronic - Plan S/P EGD& 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 Continue PPI. Continue holding Predexa. Recurrent Pleural effusion s/p thoracentesis. Continue management per pulmonology. H&H stable. The patient is receiving iron. Cardiology switched metoprolol to oral Cardizem for better rate control. CHF appears to be stable.
[2019-07-20 06:45] LABS: Hemoglobin 7.9 g/dL (12.0-16.0)
[2019-07-20] MEDS ORDERED: Ferrous Sulfate 325 MG TAB PO SCH (08:00)
--- NOTE | 2019-07-20 08:46 | PRG ---
DATE OF SERVICE: 07/20/2019 SUBJECTIVE: Ms. Tamez is doing better. Heart rate is stable. I reinstituted a low-dose calcium channel flori yesterday 30 mg q.6 hours. She continues to be on metoprolol 50 mg one p.o. q.a.m. Hemoglobin appears stable. OBJECTIVE: VITAL SIGNS: Blood pressure 118/58, pulse 82, and temperature 97.6. LUNGS: Clear to auscultation. HEART: Irregularly irregular. ABDOMEN: Soft, nontender, and nondistended. EXTREMITIES: No edema. PERTINENT LABORATORY DATA: Hemoglobin 7.9, up from 7.4. IMPRESSION: 1. Gastrointestinal bleed. 2. Atrial fibrillation. 3. Recurrent pleural effusion. RECOMMENDATIONS: 1. Ms. Tamez does have moderate to severe pulmonary hypertension, likely related to sleep apnea. Outpatient testing will be needed for diagnosis. 2. Hemoglobin appears stable. Hold anticoagulation therapy for 2 weeks. Consider Watchman device versus restarting anticoagulation therapy in 2 weeks. 3. Change Cardizem 30 q.6 hours to Cardizem 120 q.a.m. Job ID: [id number]
[2019-07-20 11:18] VITALS: BP 121/56; TEMP 97.7
--- NOTE | 2019-07-20 13:10 | EKG ---
Test Reason : SOB Blood Pressure : / mmHG Vent. Rate : 087 BPM Atrial Rate : 326 BPM P-R Int : 000 ms QRS Dur : 138 ms QT Int : 422 ms P-R-T Axes : 000 -27 -27 degrees QTc Int : 507 ms Atrial fibrillation Right bundle branch block Abnormal ECG Confirmed by SANDRA ESPINOZA DO ([id number]), dictionary editor EULA LOWRY ([id number]) on 07/20/2019 1:10:42 PM Referred By: ALEXIS Confirmed By:SANDRA ESPINOZA DO
--- NOTE | 2019-07-21 08:41 | PRG ---
DATE OF SERVICE: 07/20/2019 SUBJECTIVE: She is tentatively on the schedule for discharge. Her vital signs remain stable. She is distress. Her last blood pressure is 121/56. Her exam is otherwise unchanged. IMPRESSION: 1. Pleural effusion, secondary to heart failure, secondary to valvular heart disease, hypoalbuminemia, atrial fibrillation. 2. Pulmonary hypertension, likely multifactorial. No sleep testing being done currently. Job ID: [id number]
--- NOTE | 2019-07-21 08:58 | DIS ---
DATE OF ADMISSION: 07/16/2019 DATE OF DISCHARGE: 07/20/2019 DISCHARGE DIAGNOSES: 1. Acute blood loss anemia. 2. Gastrointestinal bleeding. 3. Atrial fibrillation. 4. History of breast cancer. 5. Recurrent pleural effusion. DISCHARGE MEDICATIONS: 1. Furosemide 40 mg orally daily. 2. Diltiazem 180 mg extended-release daily. 3. Ferrous sulfate 325 mg orally daily. 4. Metoprolol succinate 50 mg orally daily. 5. Potassium chloride 20 mEq 2 tablets daily. HOSPITAL COURSE: The patient is an 84-year-old female with past medical history of breast cancer, in remission; CHF; chronic atrial fibrillation, on Pradaxa; and lymphedema, who presented to the hospital with complaints of shortness of breath and dizziness. In the ER, her hemoglobin level was found to be low at 4, and chest x-ray revealed right-sided pleural effusion. The patient was admitted to the hospital. Her Pradaxa was discontinued, and she received Praxbind. She received a total of 4 units of packed RBCs leading to stabilization of her hemoglobin level. An EGD and colonoscopy were performed by Gastroenterology showing Melton esophagus and colonic polyp. The patient was placed initially on IV PPI, which was transitioned to oral Protonix. Cardiology recommended holding Pradaxa for 2 weeks until further evaluation. Plan will be to restart Pradaxa versus a Watchman device. The patient underwent right-sided thoracentesis, which revealed transudative effusion. This has been a recurrent issue for her and likely due to complication of her CHF. She was placed on IV diuresis and tolerated that well with achievement of negative fluid balance and improvement in her respiratory status. Outpatient followups with Cardiology and Pulmonology have been recommended. Job ID: [id number]
[2019-07-21 09:37] LABS: Fungus Stain Final report (.)
== END 2019-07-20 16:00 | disposition home health service (06) | DRG 813 ==
LOC: ERS 13:26 → IMCU/EMU 16:35 → 2NO 07-19 17:40
PROVIDERS: ADMIT Internal Medicine; ATTEND Internal Medicine
PROC: 30233N1 Transfusion of Nonautologous Red Blood Cells into Peripheral Vein, Percutaneous Approach (ICD-10-PCS; 2019-07-16)
PROC: 0W993ZZ Drainage of Right Pleural Cavity, Percutaneous Approach (ICD-10-PCS; principal; 2019-07-17)
PROC: 0DBK8ZZ Excision of Ascending Colon, Via Natural or Artificial Opening Endoscopic (ICD-10-PCS; 2019-07-18)
PROC: 0DBH8ZZ Excision of Cecum, Via Natural or Artificial Opening Endoscopic (ICD-10-PCS; 2019-07-18)
PROC: 0DJ08ZZ Inspection of Upper Intestinal Tract, Via Natural or Artificial Opening Endoscopic (ICD-10-PCS; 2019-07-18)
DX: D68.32 Hemorrhagic disorder due to extrinsic circulating anticoagulants (principal); K92.1 Melena; N17.9 Acute kidney failure, unspecified; D62 Acute posthemorrhagic anemia; I48.20 Chronic atrial fibrillation, unspecified; J90 Pleural effusion, not elsewhere classified; D47.3 Essential (hemorrhagic) thrombocythemia; I87.2 Venous insufficiency (chronic) (peripheral); I97.2 Postmastectomy lymphedema syndrome; Y83.8 Other surgical procedures as the cause of abnormal reaction of the patient, or of later complication, without mention of misadventure at the time of the procedure; E66.9 Obesity, unspecified; K57.30 Diverticulosis of large intestine without perforation or abscess without bleeding; I11.0 Hypertensive heart disease with heart failure; I50.810 Right heart failure, unspecified; K22.70 Barrett's esophagus without dysplasia; D12.0 Benign neoplasm of cecum; I34.0 Nonrheumatic mitral (valve) insufficiency; I27.29 Other secondary pulmonary hypertension; E88.09 Other disorders of plasma-protein metabolism, not elsewhere classified; G47.30 Sleep apnea, unspecified; D50.9 Iron deficiency anemia, unspecified; Z92.21 Personal history of antineoplastic chemotherapy; Z79.899 Other long term (current) drug therapy; Z85.3 Personal history of malignant neoplasm of breast; Z90.11 Acquired absence of right breast and nipple; Z90.710 Acquired absence of both cervix and uterus; Z68.37 Body mass index [BMI] 37.0-37.9, adult
CPT/HCPCS: 36415; 36416; 36430; 71045; 80048; 80053; 82150; 82550; 82728; 82945; 83540; 83550; 83615; 83880; 84157; 84484; 85014; 85018; 85025; 85060; 85610; 85730; 86850; 86900; 86901; 87070; 87116; 87205; 87206; 88112; 88305; 89051; 93005; 93306; 94760; C9113; C9399; J1940; J2001; J2704; J2916; J3490; P9016

== ENCOUNTER 2019-08-23 09:05 | Outpatient (CLI) | payer MEDICARE ==
--- NOTE | 2019-08-23 13:34 | RAD ---
CHEST 2 VIEWS: HISTORY: Dyspnea. COMPARISON: 06/24/2019 and 07/16/2019. FINDINGS: Left subclavian catheter and injection port. Right-sided axillary and chest wall surgical clips. Pe rsistent pleural and parenchymal opacity changes in the right chest and right base with improved aera tion from the 07/16/2019 study. Left chest is stable. IMPRESSION: Minimal pleural and parenchymal changes primarily in the right lung base. No significant new process . POS: C
== END 2019-08-23 09:06 | disposition home or self-care (01) ==
LOC: BICRAD 09:05
PROVIDERS: ATTEND Internal Medicine Critical Care Medicine
DX: R06.00 Dyspnea, unspecified (principal); R91.8 Other nonspecific abnormal finding of lung field
CPT/HCPCS: 71046

== ENCOUNTER 2020-03-17 08:01 | Inpatient (IN) | payer MEDICARE ==
[2020-03-17 09:03] LABS: INR-International Normal Ratio 1.5; Prothrombin Time 18.5 sec (12.0-14.7)
[2020-03-17 09:11] LABS: ALT (SGPT) 15 U/L (8-55); AST (SGOT) 32 U/L (5-34); Albumin 3.7 g/dL (3.4-4.8); Alkaline Phosphatase 61 U/L (40-110); Anion Gap 14 mmol/L (10-20); BUN (Urea Nitrogen) 50 mg/dL (9.8-20.1); Bilirubin, Total 0.6 mg/dL (0.2-1.2); Calc. Creatinine Clearance 0 mL/min (70-130); Calcium 8.5 mg/dL (7.8-10.44); Carbon Dioxide 27 mmol/L (23-31); Chloride 104 mmol/L (98-107); Globulin 3.2 g/dL (2.4-3.5); Glucose 128 mg/dL (83-110); Protein, Total 6.9 g/dL (6.0-8.3); Sodium 141 mmol/L (136-145)
[2020-03-17 09:20] LABS: Anisocytosis MARKED = >30 cells (100X) (0-5/hpf); Band 18 % (5-11); Critical Call w/ Read Back NUR.LBY; Eosinophils 1 % (0-10); Hemoglobin 8.8 g/dL (12.0-16.0); Large Platelets MODERATE; Lymphocytes 14 % (21-51); MDiff Complete? YES; Mean Corpuscular Hemoglobin 24.5 pg (27.0-31.0); Mean Corpuscular Volume 81.7 fL (78.0-98.0); Mean Platelet Volume 9.3 fL (7.4-10.4); Monocytes 4 % (0-10); Neutrophil 61 % (42-75); Ovalocytes SLIGHT = 2-5 cells (100X) (0-1/hpf); Platelet Count 1240 thou/uL (130-400); Platelet Morphology Comment Appears Increased; Poikilocytosis MODERATE=16-30 cells (100X) (0-5/hpf); Polychromasia SLIGHT = 2-3 cells (100X) (0-2/hpf); RBC Distribution Width 24.3 % (11.5-14.5); Red Blood Cell (RBC) Count 3.57 mill/uL (4.20-5.40); White Blood Cell (WBC) Count 14.9 thou/uL (4.8-10.8)
[2020-03-17] MEDS ORDERED: Pantoprazole 40 MG VIAL ONE (09:38)
[2020-03-17] MEDS ORDERED: Acetaminophen 325 MG TAB PO PRN (10:03)
[2020-03-17] MEDS ORDERED: diphenhydrAMINE 25 MG CAP PO PRN (10:22)
--- NOTE | 2020-03-17 10:26 | PDOC.HHP ---
Hospitalist HPI - History of Present Illness History of Present Illness: ADMISSION DATE: 03/17/2020 TIME OF ASSESSMENT: 10 AM PRIMARY CARE PHYSICIAN: [place] GI physician: [place] Judge: Huey [place] Decorator: Yocasta CHIEF COMPLAINT: Dark stools HPI: Patient is a 84-year-old female past medical history significant for GI bleed, atrial fibrillation on anticoagulants, and hypertension. She presents to the ER today for dark stools that have progressively gotten worse over the past week. She currently takes Eliquis with her atrial fibrillation and states her last dose was last night. She does endorse generalized fatigue and some shortness of breath over the past week, however she states she feels okay right now although not back to her baseline. She denies any fever, hematochezia, stomach discomfort, syncopal episodes, chest pain, nausea, vomiting. Of note, when she was admitted in July her hemoglobin was 4 and she required multiple PRBC transfusions and had GI consultation. Patient also states that at night recently she has been itchy. She denies any changes in home products or diet. ED COURSE: Vital Signs: Blood pressure 109/83, pulse 92, respiratory rate 18, temp 98.8, 98% room air Today in the ER they completed lab work and a fecal occult blood sample. She received Protonix 40 mg IV and half a liter normal saline. GI was consulted from the ER. PAST MEDICAL HISTORY: Breast cancer in 2003, CHF, lymphedema, atrial fib, diverticulitis PAST SURGICAL HISTORY: Hysterectomy, right breast mastectomy, Mediport placement SOCIAL HISTORY: Patient lives at home alone, she is able to handle all ADLs. She denies any drug, smoking, alcohol use. FAMILY HISTORY: Hypertension ALLERGIES: No known drug allergies CURRENT MEDICATIONS: Potassium 20 mEq daily Lasix 40 mg daily Eliquis 2.5 mg 2 times a day Iron 325 mg 1 tab daily Metoprolol tartrate 50 mg daily Pantoprazole 40 mg daily Vitamin B complex Vitamin D with calcium once daily Hospitalist ROS - Review of Systems Constitutional: reports: weakness Gastrointestinal: reports: melena Other: Itchy at night All other systems reviewed; all pertinent +/- noted in HPI/Subj - Exam General Appearance: NAD, awake alert Neck: supple Heart: no murmur, no gallops, no rubs, irregular, diminshed peripheral pulses Respiratory: CTAB, no wheezes, no rales, no ronchi Gastrointestinal: soft, non-tender, non-distended, normal bowel sounds Extremities: 2+ LE edema Extremities - other findings: compression hose in place Skin - other findings: stasis dermatitis to lower ext. Psychiatric: normal affect, normal behavior, A&O x 3 Hospitalist Results - Labs Result Diagrams: 03/17/20 14:23 03/17/20 08:35 Lab results: WBC 14.9 thou/uL (4.8-10.8) H 03/17/20 08:35 Hgb 8.8 g/dL (12.0-16.0) L 03/17/20 08:35 Hct 29.2 % (36.0-47.0) L 03/17/20 08:35 MCV 81.7 fL (78.0-98.0) 03/17/20 08:35 Plt Count 1240 thou/uL (130-400) H* 03/17/20 08:35 Band Neuts % (Manual) 18 % (5-11) H 03/17/20 08:35 Sodium 141 mmol/L (136-145) 03/17/20 08:35 Potassium 4.0 mmol/L (3.5-5.1) 03/17/20 08:35 Chloride 104 mmol/L (98-107) 03/17/20 08:35 Carbon Dioxide 27 mmol/L (23-31) 03/17/20 08:35 BUN 50 mg/dL (9.8-20.1) H 03/17/20 08:35 Creatinine 1.54 mg/dL (0.6-1.1) H 03/17/20 08:35 Glucose 128 mg/dL (83-110) H 03/17/20 08:35 Calcium 8.5 mg/dL (7.8-10.44) 03/17/20 08:35 Total Bilirubin 0.6 mg/dL (0.2-1.2) 03/17/20 08:35 AST 32 U/L (5-34) 03/17/20 08:35 ALT 15 U/L (8-55) 03/17/20 08:35 Alkaline Phosphatase 61 U/L (40-110) 03/17/20 08:35 Serum Total Protein 6.9 g/dL (6.0-8.3) 03/17/20 08:35 Albumin 3.7 g/dL (3.4-4.8) 03/17/20 08:35 - EKG Interpretation EKG: A. fib 82 bpm Hospitalist H&P A/P - Plan Plan: Acute GI bleed with acute blood loss anemia Melenic stool x 1 week, fecal occult blood test positive GI consulted by ER physician IV Protonix twice daily Monitor H&H every 6 hours N.p.o. Gentle rehydration Vital signs every 4 hours Atrial fibrillation Currently rate controlled Hold anticoagulants Monitor on telemetry May need cardiac consultation for alternative to anticoagulant, patient was recently switched from Pradaxa to half dose Eliquis after previous GI bleed Hypertension Monitor vital signs Restart home medications once reconciled VTE prophylaxis in place with MAURO starr CODE STATUS: Full Surrogate decision-maker is her daughter, Elda Hamlin Patient and plan of care have been discussed with Dr. Klein
[2020-03-17] MEDS: Sodium Chloride 0.9% 1,000 ML IV SCH (14:10)
[2020-03-17 14:36] LABS: Hemoglobin 8.5 g/dL (12.0-16.0)
[2020-03-17] MEDS ORDERED: Famotidine 20 MG TAB ONE (20:45)
[2020-03-17] MEDS: Pantoprazole 40 MG VIAL IVP SCH (21:03)
--- NOTE | 2020-03-17 21:28 | CON ---
DATE OF CONSULTATION: 03/17/2020 CHIEF COMPLAINT: Black stools and weakness. HISTORY OF PRESENT ILLNESS: Ms. Tamez is an 84-year-old woman, who noticed that her stools turned from brown to black 1 to 3 times per day over the last week. She has a history of atrial fibrillation and takes Eliquis, lower dose 2.5 mg twice daily. She had had a prior bleed last July and underwent upper endoscopy and colonoscopy by Dr. Alegria. These tests show no acute bleeding source. Her anticoagulation was changed from Xarelto to low-dose Eliquis at that point, and she has had no further problems until now. In the emergency room, she was found to have anemia and her hemoglobin was 8.8, however, this was a drop from 12.6 back in February 09. She has had no nausea or vomiting. Her creatinine is noted to be elevated at 1.54. She has had no abdominal pain. No diarrhea or constipation otherwise. PAST MEDICAL HISTORY: Breast cancer, CHF, lymphedema, atrial fibrillation, and diverticulitis. She had hyperplastic and tubular adenoma removed from the colon at the time of the colonoscopy in July. PAST SURGICAL HISTORY: Hysterectomy, mastectomy, MediPort placement, EGD and colonoscopy this past July. FAMILY HISTORY: Negative for GI malignancies. SOCIAL HISTORY: No alcohol, tobacco, or drugs. ALLERGIES: NO KNOWN DRUG ALLERGIES. MEDICATIONS: Prior to admission, 1. Eliquis 2.5 mg twice daily. 2. Potassium. 3. Lasix. 4. Iron. 5. Metoprolol. 6. Pantoprazole 40 mg daily. 7. Vitamin B. 8. Vitamin D. REVIEW OF SYSTEMS: Negative x10 systems reviewed except as stated in history of present illness. PHYSICAL EXAMINATION: VITAL SIGNS: Temperature 97.9, pulse 84, and blood pressure 119/58. GENERAL: She is in no acute distress. Alert and oriented x3. HEENT: Eyes have no scleral icterus. Oropharynx is clear without lesions. No cervical or supraclavicular lymphadenopathy. LUNGS: Clear to auscultation bilaterally. HEART: Irregularly irregular with 2/6 systolic murmur at the left lower sternal border. ABDOMEN: Soft, nontender, and nondistended. Bowel sounds are present. EXTREMITIES: No lower extremity edema. LABORATORY DATA: White blood cell count 14.9, hemoglobin 8.8, and platelets 1240. INR 1.5. Creatinine 1.54. IMPRESSION: Recurrent acute anemia with a drop in her hemoglobin from 12.6 to 8.8 over the last month. She has had black stools associated with that. She had a similar bleed back in July, and upper and lower endoscopies were negative at that time. It would be reasonable to repeat the upper endoscopy, however, repeat lower endoscopy is of lower yield. If the upper endoscopy reveals a bleeding source, then we will treat it appropriately. If the upper endoscopy is normal again, then consideration for other options for anticoagulation or discontinuation of anticoagulation can be considered. RECOMMENDATIONS: 1. Proton pump inhibitor. 2. EGD tomorrow. Job ID: [id number]
[2020-03-18 02:39] VITALS: BMI 35.5
[2020-03-18] MEDS: Sodium Chloride 0.9% 1,000 ML IV SCH (03:03)
[2020-03-18 05:21] LABS: Platelet Count 904 thou/uL (130-400)
[2020-03-18 05:34] LABS: Anion Gap 14 mmol/L (10-20); BUN (Urea Nitrogen) 40 mg/dL (9.8-20.1); Calc. Creatinine Clearance 56 mL/min (70-130); Calcium 8.4 mg/dL (7.8-10.44); Carbon Dioxide 20 mmol/L (23-31); Chloride 111 mmol/L (98-107); Glucose 125 mg/dL (83-110); Iron 11 ug/dL (50-170); Iron Binding Capacity, Total 346 mcg/dL (265-497); Potassium 4.3 mmol/L (3.5-5.1); Sodium 141 mmol/L (136-145)
[2020-03-18 05:46] LABS: #Basophils 0.2 thou/uL (0.0-0.2); #Eosinphils 0.4 thou/uL (0.0-0.7); #Lymphocytes 1.9 thou/uL (1.20-3.40); #Monocytes 1.4 thou/uL (0.11-0.59); #Neutrophils 12.2 thou/uL (1.40-6.50); %Basophils 1.3 % (0.0-1.0); %Eosinophils 2.6 % (0.0-10.0); %Monocytes 8.8 % (0.0-10.0); %Neutrophils 75.3 % (42.0-75.0); Anisocytosis MODERATE=16-30 cells (100X) (0-5/hpf); Elliptocytes SLIGHT = 2-5 cells (100X) (0-1/hpf); Giant Platelets SLIGHT; Hemoglobin 8.7 g/dL (12.0-16.0); Large Platelets SLIGHT; MDiff Complete? YES; Mean Corpuscular HGB CONC 30.8 g/dL (32.0-36.0); Mean Corpuscular Hemoglobin 25.4 pg (27.0-31.0); Mean Corpuscular Volume 82.6 fL (78.0-98.0); Platelet Morphology Comment Appears Increased; RBC Distribution Width 25.3 % (11.5-14.5); Red Blood Cell (RBC) Count 3.43 mill/uL (4.20-5.40); White Blood Cell (WBC) Count 16.2 thou/uL (4.8-10.8)
[2020-03-18 07:38] LABS: SARS-CoV-2 MS2 Positive; SARS-CoV-2 N Gene Negative; SARS-CoV-2 S Gene Negative; SARS-CoV-2 by NAA Not Detected (NotDetected); SARS-CoV-2 orf1ab Negative
[2020-03-18] MEDS: Pantoprazole 40 MG VIAL IVP SCH (08:39)
[2020-03-18] MEDS ORDERED: Apixaban 2.5 MG TAB PO SCH (09:00)
--- NOTE | 2020-03-18 09:02 | PDOC.HOSPP ---
- Subjective Encounter Date: 03/18/20 Encounter Time: 08:20 Subjective: Patient is seen for follow-up today for GI bleed with acute blood loss anemia. GI was consulted yesterday and they plan to perform an EGD today. Patient states she had a good night other than being tired this morning. She states she feels she is having a little swelling from the IV fluids. Denies shortness of breath or pain. No further bowel movements at this time. Discussed this morning's lab results with patient. Will await results of EGD for further plan. - Objective Vital Signs & Weight: Vital Signs (12 hours) Temp Pulse Resp BP BP Pulse Ox 03/18/20 07:37 97.9 F 88 20 129/79 93 L 03/18/20 03:15 116 H 20 145/64 H 95 03/18/20 02:12 97.9 F 113 H 20 178/85 H 98 03/17/20 22:03 97.8 F 95 18 110/48 L 96 Weight Weight 213 lb 8 oz I&O: 03/17/20 03/18/20 03/19/20 06:59 06:59 06:59 Intake Total 242 Output Total 200 Balance 42 Result Diagrams: 03/18/20 04:49 03/18/20 04:49 Hospitalist ROS - Review of Systems All other systems reviewed; all pertinent +/- noted in HPI/Subj - Medication Medications: Active Medications Generic Name Dose Route Start Last Admin Trade Name Freq PRN Reason Stop Dose Admin Diltiazem HCl 180 mg 03/18/20 09:00 03/18/20 08:39 Diltiazem Hcl Cd 180 Mg Capsule PO 180 mg DAILY JUSTO Administration Sodium Chloride 1,000 mls @ 70 mls/hr 03/17/20 10:15 03/18/20 03:03 Normal Saline 0.9% IV 1,000 mls .[id number] JUSTO Administration Pantoprazole Sodium 40 mg 03/17/20 21:00 03/18/20 08:39 Pantoprazole 40 Mg Vial IVP 40 mg BID JUSTO Administration - Exam General Appearance: NAD, awake alert ENT: normocephalic atraumatic Neck: supple Heart: no murmur, no gallops, no rubs, normal peripheral pulses, irregular Respiratory: CTAB, no wheezes, no rales, no ronchi, normal chest expansion Gastrointestinal: soft, non-tender, non-distended, normal bowel sounds Psychiatric: normal affect, normal behavior Hosp A/P - Plan Acute GI bleed with acute blood loss anemia Melenic stool x 1 week, fecal occult blood test positive GI consulted yesterday and saw patient EGD planned for today Continue IV Protonix twice daily N.p.o. until after EGD Gentle rehydration Vital signs every 4 hours Atrial fibrillation Currently rate controlled Hold anticoagulants Monitor on telemetry May need cardiac consultation for alternative to anticoagulant, patient was recently switched from Pradaxa to half dose Eliquis after previous GI bleed Diltiazem and metoprolol restarted Hypertension Monitor vital signs Hypertensive medications restarted
[2020-03-18] MEDS ORDERED: PROPOFOL 200 MG/20 ML VIAL ONE (09:23)
[2020-03-18] MEDS ORDERED: Lidocaine 1% PF 5 ML VIAL ONE (09:23)
[2020-03-18] MEDS ORDERED: Promethazine HCl 25 MG/ML VIAL SLOW IVP PRN (12:05)
[2020-03-18] MEDS ORDERED: Ondansetron HCl/PF 4 MG/2 ML Vial IVP PRN (12:05)
[2020-03-18] MEDS ORDERED: Promethazine HCl 25 MG/ML VIAL IM PRN (12:05)
--- NOTE | 2020-03-18 12:43 | OP ---
DATE OF PROCEDURE: 03/18/2020 PROCEDURE PERFORMED: Esophagogastroduodenoscopy. PREOPERATIVE DIAGNOSES: Gastrointestinal bleed and anemia of acute blood loss and atrial fibrillation, on chronic anticoagulation. DESCRIPTION OF PROCEDURE: Informed consent was obtained from the patient. She was sedated with total intravenous anesthesia. The bite block was placed and the endoscope was advanced without difficulty to the fourth portion of the duodenum. The esophagus was normal. 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 There was no nodularity or alteration of the pattern associated with that. The GE junction was otherwise normal. The stomach was normal including retroflexed views. The pylorus and first and second, third, and fourth portions of the duodenum were normal. Air was suctioned from the stomach. The procedure was completed. IMPRESSION: 1. Short 0.5 to 1 cm segment of possible Melton left alone. There is no nodularity to this area. 2. Otherwise, normal esophagogastroduodenoscopy to the fourth portion of the duodenum. There was no stigmata of recent bleeding. RECOMMENDATIONS: 1. Follow up in the office with Dr. Alegria for capsule endoscopy. 2. Iron supplementation as needed. 3. Follow up with Cardiology regarding anticoagulation options. Given that she has now had another episode of severe anemia on low-dose Eliquis, this will likely need to be held for now. 4. I will sign off for now. Please call if GI can be of assistance. Job ID: [id number]
[2020-03-18] MEDS ORDERED: Furosemide 40 MG/4 ML VIAL SLOW IVP SCH (16:15)
--- NOTE | 2020-03-18 21:14 | CON ---
DATE OF CONSULTATION: HISTORY OF PRESENT ILLNESS: The patient is an 84-year-old woman with a history of permanent atrial fibrillation, who presented with recurrent dark stool. The patient has a long history of atrial fibrillation. She has previously been on anticoagulation with Xarelto. She had a recurrent GI bleed and then was switched to low-dose Eliquis. The patient was being considered for a Watchman device. The patient noted having dark stools for the past several days. The patient denied having any chest pain or dyspnea. PAST MEDICAL HISTORY: 1. Permanent atrial fibrillation. 2. Pulmonary hypertension. 3. Mitral regurgitation. 4. Lymphedema. PAST SURGICAL HISTORY: Mastectomy and hysterectomy. SOCIAL HISTORY: Nonsmoker. ALLERGIES: NO KNOWN DRUG ALLERGIES. MEDICATIONS: See nursing list. PHYSICAL EXAMINATION: GENERAL: This is an obese woman, in no acute distress. VITAL SIGNS: Blood pressure 123/69. NECK: No jugular venous distention. LUNGS: Clear to auscultation. HEART: Irregular rate and rhythm with a normal S1 and S2. ABDOMEN: Distended. EXTREMITIES: Show no edema. LABORATORY RESULTS: Sodium 141, potassium 4.3, chloride 111, bicarbonate 20, BUN 40, creatinine 1.18, glucose 125. White blood cell count 16.2, hemoglobin 8.7, hematocrit 28.8, platelets were 904. EKG atrial fibrillation with left axis deviation, left bundle-branch block. IMPRESSION: 1. Recurrent gastrointestinal hemorrhage. 2. Permanent atrial fibrillation. 3. Pulmonary hypertension. 4. History of mitral regurgitation. 5. Hypertension. 6. Thrombocytosis. This patient presents with another recurrent GI hemorrhage. She will need to be reconsidered for a Watchman device. Her heart rate at this time is elevated, so we will increase the dose of her Toprol. We will follow this patient with you through her hospitalization. Job ID: [id number] MTDD
[2020-03-19 05:29] LABS: Anion Gap 16 mmol/L (10-20); BUN (Urea Nitrogen) 36 mg/dL (9.8-20.1); Calc. Creatinine Clearance 53 mL/min (70-130); Calcium 8.2 mg/dL (7.8-10.44); Carbon Dioxide 24 mmol/L (23-31); Chloride 108 mmol/L (98-107); Glucose 111 mg/dL (83-110); Potassium 3.8 mmol/L (3.5-5.1); Sodium 144 mmol/L (136-145)
[2020-03-19 06:57] LABS: Anisocytosis MODERATE=16-30 cells (100X) (0-5/hpf); Band 12 % (5-11); Elliptocytes SLIGHT = 2-5 cells (100X) (0-1/hpf); Eosinophils 1 % (0-10); Hemoglobin 8.2 g/dL (12.0-16.0); Lymphocytes 5 % (21-51); MDiff Complete? YES; Mean Corpuscular HGB CONC 30.4 g/dL (32.0-36.0); Mean Corpuscular Hemoglobin 24.8 pg (27.0-31.0); Mean Corpuscular Volume 81.6 fL (78.0-98.0); Mean Platelet Volume 9.2 fL (7.4-10.4); Monocytes 6 % (0-10); Neutrophil 73 % (42-75); Nucleated RBC 2 % (0); Platelet Count 1212 thou/uL (130-400); Platelet Morphology Comment Appears Increased; RBC Distribution Width 24.6 % (11.5-14.5); Red Blood Cell (RBC) Count 3.29 mill/uL (4.20-5.40); White Blood Cell (WBC) Count 21.7 thou/uL (4.8-10.8)
[2020-03-19] MEDS ORDERED: Potassium Chloride 20 MEQ TAB PO SCH (09:45)
[2020-03-19] MEDS ORDERED: Furosemide 40 MG/4 ML VIAL SLOW IVP SCH ×2 (09:45→16:30)
--- NOTE | 2020-03-19 09:52 | PDOC.CPN ---
- Subjective Date: 03/19/20 Time: 09:50 Interval history: Patient with c/o swelling, SOB and REBOLLAR. States she feels like fluid is built up in hands and legs. No CP. Significant REBOLLAR when she walks. - Review of Systems General: denies: fever/chills, weight/appetite/sleep changes, night sweats, fatigue Respiratory: reports: shortness of breath, exercise intolerance Cardiovascular: reports: edema. denies: chest pain, palpitation, paroxysmal nocturnal dyspnea, orthopnea Gastrointestinal: denies: nausea, vomiting, diarrhea, constipation, abd pain, GI bleeding Musculoskeletal: denies: pain, tenderness, stiffness, swelling, arthritis/arthralgias Neurological: denies: numbness, syncope, seizure, weakness - Objective Allergies/Adverse Reactions: Allergies Allergy/AdvReac Type Severity Reaction Status Date / Time No Known Allergies Allergy Verified 03/18/20 02:42 Visit Medications: Current Medications Acetaminophen (Acetaminophen 325 Mg Tab) 650 mg PO Q4H PRN PRN Reason: Headache/Fever/Mild Pain (1-3) Diltiazem HCl (Diltiazem Hcl Cd 180 Mg Capsule) 180 mg PO DAILY [facility] Last Admin: 03/19/20 08:49 Dose: 180 mg Documented by: Diphenhydramine HCl (Diphenhydramine 25 Mg Cap) 25 mg PO Q6H PRN PRN Reason: Itching & Insomnia Furosemide (Furosemide 40 Mg/4 Ml Vial) 40 mg SLOW IVP NOW [facility] Stop: 03/19/20 12:00 Metoprolol Succinate (Metoprolol Succinate Xl 50 Mg Tab) 50 mg PO BID [facility] Last Admin: 03/19/20 08:49 Dose: 50 mg Documented by: Pantoprazole Sodium (Pantoprazole 40 Mg Tab) 40 mg PO DAILY [facility] Last Admin: 03/19/20 08:49 Dose: 40 mg Documented by: Potassium Chloride (Potassium Chloride 20 Meq Tab) 40 meq PO NOW [facility] Stop: 03/19/20 12:00 Sodium Chloride (Flush - Normal Saline 10 Ml Syringe) 10 ml IVF PRN PRN PRN Reason: Saline Flush Last Admin: 03/18/20 21:47 Dose: 10 ml Documented by: Vital Signs & Weight: Vital Signs Temp Pulse Resp BP Pulse Ox 03/19/20 07:54 98.7 F 70 20 130/58 L 97 03/19/20 04:00 93 L 03/19/20 03:36 98.5 F 98 30 H 135/78 86 L Weight 213 lb 8 oz - Physical Exam General: alert & oriented x3, appears well, no apparent distress HEENT: mucus membranes moist Neck: supple neck Cardiac: other (IRR IRR) Lungs: no wheezes, other (Decreased BS to RLL and RML) Neuro: grossly intact Abdomen: soft, non-tender Extremities: 2+ LE edema, other: (+1 UEE) Skin: clear Musculoskeletal: no pain - Labs Result Diagrams: 03/19/20 04:38 03/19/20 04:38 - Assessment/Plan Assessment/Plan: 1. Chronic AF 2. REBOLLAR 3. Recurrent Right pleural effusion 4. Recurrent GIBs Will give additional lasix IV today. No CXR done this admission. Will order. TALIA Rust. He will review and decide if patient needs tap. History of multiple therapeutic taps in the last year. Discussed Watchman. In the past she was not agreeable. At this time she is as she understands risks of bleeds and CVA. Asks for [facility] referral. Will d/w Dr. Mir's group if this is possible with their [facility] team. If not refer to [facility].
--- NOTE | 2020-03-19 10:03 | RAD ---
PA AND LATERAL CHEST: Date: 03/19/2020 HISTORY: Shortness of breath. Right pleural effusion. COMPARISON: 11/22/2019 exam. FINDINGS: Heart size is enlarged. MediPort catheter is in place. Surgical clips are seen over the right chest. There is elevation of the right hemidiaphragm, but also increased density in the right base, which pr obably represents a combination of pleural effusion and atelectasis versus infiltrate. Chest CT may b e helpful in better differentiation. IMPRESSION: 1. Worsening right-sided pleural and parenchymal lung changes. 2. Cardiomegaly. 3. Left-sided MediPort catheter in place. POS: ESTEFANI
--- NOTE | 2020-03-19 17:27 | PDOC.HOSPP ---
- Subjective Encounter Date: 03/19/20 Encounter Time: 17:25 Subjective: Patient was seen and examined in bed. She was sitting by bedside generally comfortable. She notes fatigability on activity however comfortable at rest. She denies any cough or chest pain. She however also notes having intermittent itching of his skin Also no fevers diarrhea constipation - Objective Vital Signs & Weight: Vital Signs (12 hours) Temp Pulse Resp BP Pulse Ox 03/19/20 15:58 98.0 F 81 16 130/62 94 L 03/19/20 12:00 97.7 F 82 18 128/60 98 03/19/20 07:54 98.7 F 70 20 130/58 L 97 Weight Weight 213 lb 8 oz I&O: 03/18/20 03/19/20 03/20/20 06:59 06:59 06:59 Intake Total 242 1119 480 Output Total 200 1300 500 Balance 42 -181 -20 Result Diagrams: 03/19/20 04:38 03/19/20 04:38 Hospitalist ROS - Medication Medications: Active Medications Generic Name Dose Route Start Last Admin Trade Name Anujq PRN Reason Stop Dose Admin Diltiazem HCl 180 mg 03/18/20 09:00 03/19/20 08:49 Diltiazem Hcl Cd 180 Mg Capsule PO 180 mg DAILY JUSTO Administration Metoprolol Succinate 50 mg 03/18/20 21:00 03/19/20 08:49 Metoprolol Succinate Xl 50 Mg Tab PO 50 mg BID JUSTO Administration Pantoprazole Sodium 40 mg 03/19/20 09:00 03/19/20 08:49 Pantoprazole 40 Mg Tab PO 40 mg DAILY JUSTO Administration Sodium Chloride 10 ml 03/17/20 10:03 03/18/20 21:47 Flush - Normal Saline 10 Ml Syringe IVF 10 ml PRN PRN Administration Saline Flush - Exam General Appearance: awake alert Heart: RRR, no murmur, no gallops, no rubs Respiratory - other findings: Reduced air entry on right lower reyes Gastrointestinal: soft, non-distended, normal bowel sounds Extremities: no cyanosis, no clubbing, no edema Neurological: cranial nerve grossly intact, no focal deficits Psychiatric: normal affect, A&O x 3 Hosp A/P - Plan 84-year-old female patient history of breast cancer, recurrent pleural effusions and atrial fibrillation on anticoagulation and admission on account of GI bleeding. Lower GI bleed She is status post upper GI endoscopy with no significant identification of bleeding source. We will continue on Protonix Hold Eliquis Monitor hemoglobin GI recommends follow-up with paving supervisor for capsule endoscopy. Atrial fibrillation Currently holding anticoagulation on account of GI bleed She has been in A. fib with RVR Cardiology consulted.Watchman procedure decided Continue monitoring Appreciate cardiology input. Recurrent right pleural effusion Etiology unclear Possibly due to heart failure preserved ejection fraction Also has history of cancer Cardizem discussed with pulmonologysuggest no tapping for now We will diurese for now If worsens will get pulmonology involved Severe thrombocytosis Platelet count above thousand . This has been consistent in her chart however patient is not quite aware of that fact. She also complains of intermittent itching I am concerned for possible essential thrombocythemia She may need hydroxyurea Oncology consultation in a.m. VT prophylaxisSCD CODE STATUS full code
[2020-03-19] MEDS ORDERED: Iron Sucrose Complex 200 MG in Sodium Chloride 0.9% 100 ML IVPB SCH (17:30)
[2020-03-19] MEDS ORDERED: Iron, Sodium Ferric Gluconate 250 MG in Sodium Chloride 0.9% 100 ML IVPB SCH (17:45)
[2020-03-20 05:34] LABS: Anion Gap 11 mmol/L (10-20); BUN (Urea Nitrogen) 38 mg/dL (9.8-20.1); Calc. Creatinine Clearance 48 mL/min (70-130); Carbon Dioxide 28 mmol/L (23-31); Chloride 105 mmol/L (98-107); Glucose 104 mg/dL (83-110); Potassium 3.9 mmol/L (3.5-5.1); Sodium 140 mmol/L (136-145)
[2020-03-20 05:43] LABS: Anisocytosis SLIGHT = 6-15 cells (100X) (0-5/hpf); Band 7 % (5-11); Eosinophils 2 % (0-10); Giant Platelets SLIGHT; Hemoglobin 7.6 g/dL (12.0-16.0); Large Platelets MODERATE; Lymphocytes 4 % (21-51); MDiff Complete? YES; Mean Corpuscular HGB CONC 30.1 g/dL (32.0-36.0); Mean Corpuscular Hemoglobin 25.2 pg (27.0-31.0); Mean Corpuscular Volume 83.6 fL (78.0-98.0); Mean Platelet Volume 9.2 fL (7.4-10.4); Monocytes 9 % (0-10); Neutrophil 78 % (42-75); Platelet Count 1098 thou/uL (130-400); Platelet Morphology Comment Appears Increased; RBC Distribution Width 24.7 % (11.5-14.5); Red Blood Cell (RBC) Count 3.01 mill/uL (4.20-5.40); Toxic Granulation SLIGHT; White Blood Cell (WBC) Count 18.7 thou/uL (4.8-10.8)
[2020-03-20] MEDS ORDERED: Furosemide 40 MG/4 ML VIAL SLOW IVP SCH (09:00)
[2020-03-20 16:09] VITALS: BP 115/55; TEMP 97.8
--- NOTE | 2020-03-20 20:33 | CON ---
DATE OF CONSULTATION: REASON FOR CONSULT: Thrombocytosis. HISTORY OF PRESENT ILLNESS: Ms. Tamez is a pleasant 84-year-old female with a history of breast cancer treated in 2003 with chemotherapy. She initially presented to this facility with increasing shortness of breath in July of 2019 and was noted to have platelet count of 1.2 million. Her white count was elevated at 27,000. She was seen by Dr. Han at that time and felt that her thrombocytosis was secondary to iron deficiency. She was having acute bleed. She was instructed to follow up in our clinic, but did not. She presents again to this facility on March 17 with complaints of dark stools. Her iron dropped from 12.6 on February 09 to 8.8 on the day of admission. She was taking low-dose Eliquis for her atrial fibrillation. She underwent endoscopy with no evidence of bleeding. Her platelets on admission were 1.2 million. Her white count was elevated at 14.9. She did have a left shift with 61% neutrophils and 18% bands. The patient was in her usual state of health prior to this admission. She denies any frequent weight loss, night sweats, joint pain, abdominal pain. She does complain of a new onset of itching approximately 3 weeks ago. PAST MEDICAL HISTORY: 1. Atrial fibrillation. 2. History of breast cancer treated in 2003. 3. Congestive heart failure. 4. Right upper extremity lymphedema secondary to mastectomy and radiation. 5. Chronic pleural effusions. 6. Congestive heart failure. PAST SURGICAL HISTORY: 1. Hysterectomy, right breast mastectomy. 2. Thoracentesis. ALLERGIES: NO KNOWN DRUG ALLERGIES. HOME MEDICATIONS: 1. Vitamin B. 2. Cardizem CD. 3. Iron. 4. K-Dur. 5. Lasix. 6. Protonix. 7. Toprol-XL. FAMILY HISTORY: Noncontributory. SOCIAL HISTORY: No alcohol, tobacco, or illicit drug use. REVIEW OF SYSTEMS: 12-point review of systems is negative except for noted in HPI. PHYSICAL EXAMINATION: VITAL SIGNS: Temperature is 97.6, pulse is 70, respiratory rate 16, BP is 135/63. She is 96% on 1 L. GENERAL: A well-developed, well-nourished female, in no acute distress. HEENT: Normocephalic, atraumatic. Pupils are equal and reactive to light. NECK: Supple. CV: Regular rate and rhythm. LUNGS: Clear. ABDOMEN: Obese, nontender. Bowel sounds are positive. EXTREMITIES: 2+ bilateral lower extremity edema. Right upper extremity lymphedema sleeve in place. NEUROLOGIC: Nonfocal. PERTINENT LABORATORY DATA AND X-RAYS: WBCs 18.7, hemoglobin 7.6, hematocrit 25.1, platelet count is [id number], 78% neutrophils, 7 bands, 4 lymphocytes, large platelets. PT is 18.5, INR is 1.5, and PTT is 42. Sodium 140, potassium 3.9, chloride 105, CO2 is 28, BUN is 38, creatinine 1.38, calcium 8. Iron is 11, TIBC is 346, ferritin is 25, bilirubin 0.6, AST 32, ALT is 15, alkaline phosphatase is 61. Serum total protein is 6.9, albumin 3.5, globulin 3.2. TSH is normal. COVID PCR negative. ASSESSMENT: 1. Leukocytosis. 2. Thrombocytosis. 3. Acute anemia. DISCUSSION: The patient has had new onset leukocytosis and thrombocytosis since July. She unfortunately did not follow up in our clinic for further workup. I did draw a JAK2 mutation today to rule out essential thrombocytosis. She has agreed to follow up in our clinic next week to see Dr. Han and discuss the results and other further workup that may be needed. Thank you for the consult. We will follow along with her hospital course. Job ID: [id number]
--- NOTE | 2020-03-21 19:28 | PDOC.DS.DS ---
Provider - Provider Date of Admission: 03/17/20 09:48 Date of Discharge: 03/20/20 Admitting Provider: Dayo Klein MD Primary Care Physician: Kristopher Duque MD Course - Hospital Course Hospital Course: This is an 84-year-old female patient with a history of GI bleed, pleural effusion and atrial fibrillation on Eliquis who presented on the day of admission on account of dark stools. She was admitted for GI bleeding gastroenterology was consulted. She had an upper GI endoscopy which revealed no source of bleeding. Evaluation was plan to follow-up with GI on discharge. Given the recurrent nature of her bleeds Eliquis was discontinued on this admission. Given history of A. fib and on Eliquis cardiology was consulted and the decision was made that she may need a watchman procedure. Her metoprolol was adjusted and she would follow-up with a face upon discharge Patient had intermittent shortness of breath and chest x-ray revealed mild to moderate pleural effusion. Cardiology team communicated with pulmonology and I advocated diuresis rather than thoracentesis at this time. She was discharged to follow-up with pulmonology for reassessment in a week She also had elevated platelets above 8000 which has been persistent since 6 months ago. She did mention episodes of itching and this was concerning for some myeloproliferative disorder. Hematology was consulted. She was evaluated and asked to follow-up with heme- onc in a week Oxygen requirement was assessed at time of discharge and she was saturating between 90-94 on walk test. Decision was made to discharge her without oxygen Resuscitation Status: 03/17/20 10:03 Resuscitation Status Routine Co-Sign Provider: Resuscitation Status: FULL: Full Resuscitation Discussed with: pt and daughter - Labs Lab Results: 03/20/20 04:54 03/20/20 04:54 Abnormal Lab Results - Last 48 hrs 03/20/20 04:54: BUN 38 H, Creatinine 1.38 H 03/20/20 04:54: WBC 18.7 H, RBC 3.01 L, Hgb 7.6 L, Hct 25.1 L, MCH 25.2 L, MCHC 30.1 L, RDW 24.7 H, Plt Count 1098 H*, Neutrophils % (Manual) 78 H, Lymphocytes % (Manual) 4 L, Large Platelets MODERATE H, Plt Morphology Comment Appears Increased H Microbiology - Entire Visit 03/17/20 08:38 Stool - Pending Stool Occult Blood (JOSE ANTONIO) - Final - Physical Exam Vitals: Weight Weight 213 lb 8 oz Physical Exam: The patient was seen and examined on the day of discharge. Problem - Discharge Plan Assessment: GI bleed In the setting of Eliquis Eliquis discontinued We will follow-up with GI ATrino lee Eliquis discontinued Metoprolol adjusted Follow-up for watchman procedure Thrombocytosis Concerning for essential thrombocytosis Follow-up with heme-onc Recurrent right pleural effusion Follow-up with pulmonology for evaluation Plan - Discharge Medications Prescriptions: Ferrous Sulfate [Feosol] 325 mg PO QAM-WM 30 Days #30 tab Potassium Chloride [K-Dur] 10 meq PO DAILY #30 tab Furosemide [Lasix] 40 mg PO DAILY #60 tablet Pantoprazole [Protonix] 40 mg PO DAILY #30 tab Home Medications: Medication Instructions Recorded Confirmed Type Vitamin B Complex 1 cap PO DAILY 07/16/19 03/18/20 History Diltiazem HCl [Cardizem CD] 180 mg PO DAILY cap 03/20/20 Rx Ferrous Sulfate [Feosol] 325 mg PO QAM-WM 30 Days #30 tab 03/20/20 Rx Furosemide [Lasix] 40 mg PO DAILY #60 tablet 03/20/20 Rx Metoprolol Succinate [Toprol XL] 50 mg PO BID tab 03/20/20 Rx Pantoprazole [Protonix] 40 mg PO DAILY #30 tab 03/20/20 Rx Potassium Chloride [K-Dur] 10 meq PO DAILY #30 tab 03/20/20 Rx Allergies: No Known Allergies Allergy (Verified 03/18/20 02:42) - Discharge Instructions Activity:: Activity as Tolerated Nourishment:: Heart Healthy Diet - Follow up Plan Referrals: Boris Alegria MD [Active] - 14 Days (Please call to make a follow up appointment with Dr. Alegria in 2 weeks.) Jani Costa MD [Active] - 03/27/20 10:15 am (Appointment with Dr. Han ) Kristopher Duque MD [Primary Care Provider] - 7 Days (Please follow up with your primary care provider in 7 days.) Bernard Rust MD [Active] - 7 Days (Please call to make an appointment with Dr. Rust in 7 days.) Disposition: HOME Quality - Care Measures CORE MEASURES:: N/A
--- NOTE | 2020-03-23 05:05 | PQF ---
Dear : Lisandro Lorenz Date 03/23/2020 Please exercise your independent, professional judgment in responding to the clarification form. Clinical indicators are provided on the bottom of this form for your review Can you please further clarify the acuity of Systolic CHF? Please check appropriate box(es): HEART FAILURE: A. ACUITY [ ] Acute on Chronic Systolic / HFrEF [ ] Chronic Systolic / HFrEF [ ] Other diagnosis please specify [x ] Unable to determine Physician Signature: renu Date/Time:03/23/20 For continuity of documentation, please document condition throughout progress notes and discharge summary. Thank You. To be completed by CDI/Coding staff for physician review: Present Clinical Indicators - Signs / Symptoms / Labs Results and Location in Medical Record [ x ] Worsening right sided pleural effusion Chest X ray 03/19 [ x ] Cardiomegaly Chest X ray 03/19 [ x ] lymphedema Consult pg.1 [ x ] pt with c/o swelling, SOB, and REBOLLAR. Sates she feels like fluid is built up in hands and legs. Significant REBOLLAR when she walks. Cardio PN 03/[address] Conley [ x ] PE: 2+ LE edema Cardio PN 03/[address] Conley [ x ] recurrent R pleural effusion possibly due to heart failure preserved ejection fraction Hosp PN 03/19 Dr. Lorenz pg 3. [ x ] patient had intermittent shortness of breath and chest x-ray revealed mild to moderate pleural effusion. DS pg 1 Present Risk Factors Results and Location in Medical Record [ x ] 84 years old H and P pg.1 [ x ] Afib H and P pg.1 [ x ] HTN H and P pg.1 [ x ] Pulmonary HTN Consult pg.1 Present Treatments Results and Location in Medical Record [ x ] Cardiology Consult Dr. Vidal 03/18 [ x ] IV Lasix 40mg IV MAR [ x ] Metoprolol 50mg Oral JUN 22 CDS/Asset Coordinator Signature: Cody Flores Phone #: [phone] Date 03/23/2020 This is a permanent part of the Medical Record [facility]
== END 2020-03-20 18:57 | disposition home or self-care (01) | DRG 378 ==
LOC: ERS 08:01 → ERHOLD 09:48 → 2SW 03-18 02:24
PROVIDERS: ADMIT Internal Medicine; ATTEND Internal Medicine
PROC: 0DJ08ZZ Inspection of Upper Intestinal Tract, Via Natural or Artificial Opening Endoscopic (ICD-10-PCS; principal; 2020-03-18)
DX: K92.1 Melena (principal); D62 Acute posthemorrhagic anemia; I48.21 Permanent atrial fibrillation; J90 Pleural effusion, not elsewhere classified; I50.32 Chronic diastolic (congestive) heart failure; C94.6 Myelodysplastic disease, not elsewhere classified; Z20.828 Contact with and (suspected) exposure to other viral communicable diseases; D47.3 Essential (hemorrhagic) thrombocythemia; I11.0 Hypertensive heart disease with heart failure; I89.0 Lymphedema, not elsewhere classified; I27.20 Pulmonary hypertension, unspecified; I34.0 Nonrheumatic mitral (valve) insufficiency; D72.829 Elevated white blood cell count, unspecified; Z79.01 Long term (current) use of anticoagulants; Z85.3 Personal history of malignant neoplasm of breast; Z90.710 Acquired absence of both cervix and uterus; Z79.899 Other long term (current) drug therapy
CPT/HCPCS: 36415; 71046; 80048; 80053; 81270; 82274; 82728; 83540; 83550; 85025; 85610; 85730; 86850; 86900; 86901; 87635; 93005; 96374; C9113; J1940; J2704; J2916; J3490; U0003

== ENCOUNTER 2020-08-29 07:15 | Outpatient (CLI) | payer MEDICARE ==
[2020-08-29] MEDS ORDERED: Iopamidol 370 76% 100 ML VIAL ONE (13:38)
== END 2020-08-29 07:16 | disposition home or self-care (01) ==
LOC: CT 07:15
PROVIDERS: ATTEND Internal Medicine Cardiovascular Disease
DX: I48.91 Unspecified atrial fibrillation (principal); R06.02 Shortness of breath
CPT/HCPCS: 71275; 82565; Q9967

== ENCOUNTER 2021-04-17 09:55 | Outpatient (CLI) | payer MEDICARE | END 2021-04-17 09:56 | disposition home or self-care (01) | LOC: BICULT 09:55 | PROVIDERS: ATTEND Internal Medicine Nephrology | DX: I13.10 Hypertensive heart and chronic kidney disease without heart failure, with stage 1 through stage 4 chronic kidney disease, or unspecified chronic kidney disease (principal); N18.9 Chronic kidney disease, unspecified; D63.1 Anemia in chronic kidney disease; D75.839 Thrombocytosis, unspecified; I25.10 Atherosclerotic heart disease of native coronary artery without angina pectoris; R80.9 Proteinuria, unspecified; N39.0 Urinary tract infection, site not specified; M19.90 Unspecified osteoarthritis, unspecified site; N28.1 Cyst of kidney, acquired | CPT/HCPCS: 76770; 93975 ==

== ENCOUNTER 2021-06-28 10:33 | Outpatient (CLI) | payer MEDICARE ==
[2021-06-27 13:55] VITALS: BMI 35.9
[2021-06-28 12:04] LABS: INR-International Normal Ratio 1.2; PTT 35.7 sec (22.0-33.0); Prothrombin Time 13.3 sec (9.5-12.1)
[2021-06-28 12:08] LABS: Anion Gap 15 mmol/L (10-20); BUN (Urea Nitrogen) 29 mg/dL (9.8-20.1); Calc. Creatinine Clearance 47 mL/min (70-130); Calcium 8.9 mg/dL (7.8-10.44); Carbon Dioxide 25 mmol/L (23-31); Chloride 108 mmol/L (98-107); Glucose 90 mg/dL (83-110); Sodium 143 mmol/L (136-145)
[2021-06-28 12:21] LABS: Hemoglobin 11.7 g/dL (12.0-15.5); Mean Corpuscular Hemoglobin 37.7 pg (27.0-33.0); Mean Corpuscular Volume 118.1 fl (81.6-98.3); Mean Platelet Volume 11.4 fl (7.4-10.4); Platelet Count 462 10x3/uL (150-450)
[2021-06-28 23:47] LABS: SARS-CoV-2 PCR by NAA Not Detected (NotDetected)
== END 2021-06-28 10:34 | disposition home or self-care (01) ==
LOC: LABBT 10:33
PROVIDERS: ATTEND Internal Medicine Cardiovascular Disease
DX: Z01.812 Encounter for preprocedural laboratory examination (principal); I48.20 Chronic atrial fibrillation, unspecified; Z20.822 Contact with and (suspected) exposure to COVID-19
CPT/HCPCS: 80048; 85027; 85610; 85730; U0003; U0005

== ENCOUNTER 2021-08-07 00:36 | Inpatient (IN) | payer MEDICARE ==
[2021-08-07 00:58] LABS: #Basophils 0.1 thou/uL (0.0-0.2); #Eosinphils 0.2 thou/uL (0.0-0.7); #Lymphocytes 3.3 thou/uL (1.20-3.40); #Monocytes 0.8 thou/uL (0.11-0.59); #Neutrophils 6.6 thou/uL (1.40-6.50); %Basophils 1.2 % (0.0-1.0); %Eosinophils 2.1 % (0.0-10.0); %Lymphocytes 30.1 % (21.0-51.0); %Neutrophils 59.6 % (42.0-75.0); Hemoglobin 10.1 g/dL (12.0-16.0); Mean Corpuscular HGB CONC 33.1 g/dL (32.0-36.0); Mean Corpuscular Hemoglobin 40.8 pg (27.0-31.0); Mean Platelet Volume 8.9 fL (7.4-10.4); Platelet Count 527 thou/uL (130-400); RBC Distribution Width 17.4 % (11.5-14.5); Red Blood Cell (RBC) Count 2.47 mill/uL (4.20-5.40)
[2021-08-07 01:11] LABS: INR-International Normal Ratio 1.2; PTT 30.5 sec (22.9-36.1); Prothrombin Time 15.7 sec (12.0-14.7)
[2021-08-07] MEDS ORDERED: Mannitol 12.5 GM/50 ML ONE (01:16)
[2021-08-07] MEDS ORDERED: manNITOL 20% 500 ML ONE (01:16)
[2021-08-07 01:18] LABS: Actual Bicarbonate (HCO3a) 25.6 mEq/L (22-28); Analyzer IN Cardio ER; Base Excess (BEa) 2.6 mEq/L (-2.0 to +3.0); CO2 Tension 33.8 mmHg (35.0-45.0); Carboxyhemoglobin (COHb) 0.2 gm% (0.0-3.0); Hemoglobin (Hb) 10.1 g/dL (12.0-16.0); O2 Tension (PaO2), arterial 228.4 mmHg (> 60.0); Potassium - ABG Lab 3.84 mmol/L (3.70-5.30)
[2021-08-07] MEDS ORDERED: HumaLOG 300 UNITS/3 ML VIAL SC PRN (01:34)
[2021-08-07] MEDS ORDERED: Dextrose 50% Abboject 50 ML SYRINGE SLOW IVP PRN (01:34)
[2021-08-07] MEDS ORDERED: Acetaminophen 325 MG TAB PO PRN (01:34)
[2021-08-07] MEDS ORDERED: Promethazine HCl 25 MG/ML VIAL IM PRN (01:34)
[2021-08-07] MEDS ORDERED: hydrALAZINE 20 MG/ML VIAL SLOW IVP PRN (01:34)
[2021-08-07] MEDS ORDERED: Ondansetron PF 4 MG/2 ML Vial IVP PRN (01:34)
[2021-08-07] MEDS ORDERED: Dextrose 5% in Water 1,000 ML IV PRN (01:34)
[2021-08-07 01:39] LABS: Bacteria/HPF 2+ HPF (None Seen); Bilirubin Negative (Negative); Blood, Urine Negative (Negative); Clarity Clear (Clear); Glucose, Urine (Dipstick) Normal (Negative); Ketone, Urine Negative (Negative); Leukocyte 250 Leu/uL (Negative); Nitrite 2+ (Negative); Protein, Urine (Dipstick) Negative (Neg-Trace); RBC/HPF 0-3 HPF (0-3); Specific Gravity, Urine 1.018 (1.002-1.036); Squamous Epithelial 0-3 HPF (0-3); Urobilinogen Normal mg/dL (Less than 2); WBC/HPF 21-50 HPF (0-3); pH, Urine 5.5 (5.0-9.0)
[2021-08-07] MEDS ORDERED: fentaNYL Citrate/PF 2,000 MCG in Sodium Chloride 0.9% 60 ML IV PRN (01:40)
[2021-08-07] MEDS ORDERED: Sodium Chloride 0.9% 1,000 ML IV SCH ×3 (01:45→05:30)
[2021-08-07 01:51] LABS: SARS-CoV-2 NAA Rapid Test Not Detected (NotDetected)
[2021-08-07 02:05] LABS: ALT (SGPT) 16 U/L (8-55); AST (SGOT) 42 U/L (5-34); Albumin 3.7 g/dL (3.4-4.8); Alkaline Phosphatase 59 U/L (40-110); Anion Gap 14 mmol/L (10-20); BUN (Urea Nitrogen) 39 mg/dL (9.8-20.1); Bilirubin, Total 0.7 mg/dL (0.2-1.2); Calc. Creatinine Clearance 0 mL/min (70-130); Calcium 8.9 mg/dL (7.8-10.44); Carbon Dioxide 25 mmol/L (23-31); Chloride 105 mmol/L (98-107); Globulin 3.6 g/dL (2.4-3.5); Glucose 150 mg/dL (83-110); Potassium 3.9 mmol/L (3.5-5.1); Protein, Total 7.3 g/dL (5.8-8.1); Sodium 140 mmol/L (136-145)
[2021-08-07 02:58] LABS: Actual Bicarbonate (HCO3a) 24.7 mEq/L (22-28); Base Excess (BEa) 1.9 mEq/L (-2.0 to +3.0); CO2 Tension 31.4 mmHg (35.0-45.0); Calcium, Ionized (arterial) 1.05 mmol/L (1.12-1.30); Carboxyhemoglobin (COHb) 0.8 gm% (0.0-3.0); Hemoglobin (Hb) 9.1 g/dL (12.0-16.0); O2 Tension (PaO2), arterial 113.8 mmHg (> 60.0); Potassium - ABG Lab 3.86 mmol/L (3.70-5.30); pH, Arterial 7.51 (7.35-7.45)
[2021-08-07] MEDS ORDERED: Piperacillin/Tazobactam 3.375 GM in Sodium Chloride 0.9% 100 ML IVPB SCH ×2 (03:00→08:00)
[2021-08-07 03:01] LABS: Puncture Site LRA
[2021-08-07] MEDS ORDERED: Albumin 5% 250 ML ONE (03:36)
[2021-08-07 03:42] LABS: Puncture Site LRA
[2021-08-07 03:59] VITALS: BMI 35.2
[2021-08-07] MEDS ORDERED: Hydrocortisone Sod Succ/PF 100 mg/2 ml Vial IVP SCH ×2 (04:30→10:00)
[2021-08-07] MEDS ORDERED: Calcium Chloride 1 GM/10 ML Abboject SYRINGE IVP SCH (04:30)
[2021-08-07] MEDS ORDERED: Levothyroxine 100 MCG SDV IVP SCH (04:34)
[2021-08-07] MEDS ORDERED: Levothyroxine Sodium 400 MCG in Sodium Chloride 0.9% 100 ML IVPB SCH (04:45)
[2021-08-07] MEDS ORDERED: Calcium Chloride 27.2 MEQ in Sodium Chloride 0.9% 250 ML 250 ML IVPB SCH (04:45)
[2021-08-07 05:45] LABS: Anion Gap 14 mmol/L (10-20); BUN (Urea Nitrogen) 37 mg/dL (9.8-20.1); Calc. Creatinine Clearance 37 mL/min (70-130); Calcium 8.5 mg/dL (7.8-10.44); Carbon Dioxide 24 mmol/L (23-31); Chloride 106 mmol/L (98-107); Glucose 145 mg/dL (83-110); Phosphorus 3.4 mg/dL (2.3-4.7); Potassium 3.8 mmol/L (3.5-5.1); Sodium 140 mmol/L (136-145)
[2021-08-07] MEDS ORDERED: Atropine Sulfate 1 mg/10 ml Syringe ONE (05:46)
[2021-08-07 05:48] LABS: #Lymphocytes 0.3 thou/uL (1.20-3.40); #Monocytes 0.3 thou/uL (0.11-0.59); #Neutrophils 5.8 thou/uL (1.40-6.50); %Basophils 0.5 % (0.0-1.0); %Eosinophils 0.3 % (0.0-10.0); %Lymphocytes 4.9 % (21.0-51.0); %Monocytes 5.2 % (0.0-10.0); %Neutrophils 89.1 % (42.0-75.0); Anisocytosis SLIGHT = 6-15 cells (100X) (0-5/hpf); Hemoglobin 8.1 g/dL (12.0-16.0); MDiff Complete? YES; Mean Corpuscular HGB CONC 33.1 g/dL (32.0-36.0); Mean Corpuscular Hemoglobin 39.8 pg (27.0-31.0); Platelet Count 335 thou/uL (130-400); Platelet Morphology Comment Appears Adequate; RBC Distribution Width 17.4 % (11.5-14.5); Red Blood Cell (RBC) Count 2.04 mill/uL (4.20-5.40); White Blood Cell (WBC) Count 6.6 thou/uL (4.8-10.8)
[2021-08-07] MEDS ORDERED: CEFAZOLIN 1 GM VIAL SLOW IVP SCH (06:00)
[2021-08-07 08:13] LABS: Bacteria/HPF 1+ HPF (None Seen); Bilirubin Negative (Negative); Blood, Urine Trace (Negative); Clarity Clear (Clear); Glucose, Urine (Dipstick) Normal (Negative); Ketone, Urine Negative (Negative); Leukocyte 75 Leu/uL (Negative); Nitrite Negative (Negative); Protein, Urine (Dipstick) Negative (Neg-Trace); RBC/HPF 0-3 HPF (0-3); Specific Gravity, Urine 1.019 (1.002-1.036); Squamous Epithelial 0-3 HPF (0-3); Urobilinogen Normal mg/dL (Less than 2)
[2021-08-07 08:14] LABS: Urine Culture Reflex Yes Yes
[2021-08-07] MEDS ORDERED: Famotidine/PF 20 mg/2ml Vial SLOW IVP SCH (09:00)
[2021-08-07] MEDS ORDERED: Morphine 4 MG/ML VIAL SLOW IVP PRN (10:21)
[2021-08-07] MEDS ORDERED: Morphine 4 MG/ML VIAL SLOW IVP SCH (10:30)
[2021-08-07 11:12] VITALS: BP 80/39
[2021-08-07 11:30] LABS: Sodium 142 mmol/L (136-145)
== END 2021-08-07 14:40 | disposition hospice, inpatient (51) | DRG 85 ==
LOC: ERS 00:36 → CCU 01:34 → UNDOADMIN 01:34
PROVIDERS: ADMIT Surgery; ATTEND Surgery
PROC: 6A550Z2 Pheresis of Platelets, Single (ICD-10-PCS; principal; 2021-08-07)
PROC: 5A1935Z Respiratory Ventilation, Less than 24 Consecutive Hours (ICD-10-PCS; 2021-08-07)
PROC: 0BH18EZ Insertion of Endotracheal Airway into Trachea, Via Natural or Artificial Opening Endoscopic (ICD-10-PCS; 2021-08-07)
DX: S06.5X0A Traumatic subdural hemorrhage without loss of consciousness, initial encounter (principal); J96.00 Acute respiratory failure, unspecified whether with hypoxia or hypercapnia; S06.1X0A Traumatic cerebral edema without loss of consciousness, initial encounter; N39.0 Urinary tract infection, site not specified; S06.6X0A Traumatic subarachnoid hemorrhage without loss of consciousness, initial encounter; W18.30XA Fall on same level, unspecified, initial encounter; I48.91 Unspecified atrial fibrillation; Z66 Do not resuscitate; Z51.5 Encounter for palliative care; I50.9 Heart failure, unspecified; Z20.822 Contact with and (suspected) exposure to COVID-19; R00.1 Bradycardia, unspecified; S00.83XA Contusion of other part of head, initial encounter; R40.2312 Coma scale, best motor response, none, at arrival to emergency department; R40.2112 Coma scale, eyes open, never, at arrival to emergency department; R40.2212 Coma scale, best verbal response, none, at arrival to emergency department; Z88.8 Allergy status to other drugs, medicaments and biological substances; Z79.899 Other long term (current) drug therapy; Z79.82 Long term (current) use of aspirin; Z85.3 Personal history of malignant neoplasm of breast; Z79.02 Long term (current) use of antithrombotics/antiplatelets; Y92.009 Unspecified place in unspecified non-institutional (private) residence as the place of occurrence of the external cause; Z90.710 Acquired absence of both cervix and uterus; Z90.10 Acquired absence of unspecified breast and nipple
CPT/HCPCS: 36415; 36430; 36600; 70450; 71045; 80053; 81003; 81015; 82533; 82805; 83605; 83735; 83930; 84100; 85610; 86850; 86900; 86901; 87070; 87077; 87086; 87186; 87205; 93005; 93010; 93306; 94002; J1720; J2150; J2543; J3490; J7050; J7799; P9035; P9045; S0028; U0002

== ENCOUNTER 2021-08-07 15:23 | Inpatient (IN) | payer OTHER ==
[2021-08-07] MEDS ORDERED: Morphine 4 MG/ML VIAL SLOW IVP PRN (15:42)
[2021-08-07] MEDS ORDERED: Haloperidol Lactate 5 MG/ML VIAL SLOW IVP PRN (15:45)
[2021-08-07] MEDS ORDERED: diphenhydrAMINE 50 MG/ML VIAL IVP PRN (15:45)
[2021-08-07] MEDS ORDERED: Scopolamine 1.5 mg/72 hour Patch TOP PRN (15:45)
[2021-08-07] MEDS ORDERED: Acetaminophen 650 MG Suppository PR PRN (15:45)
[2021-08-07] MEDS ORDERED: Promethazine HCl 25 MG SUPP PR PRN (15:45)
[2021-08-07] MEDS ORDERED: Lorazepam 2 MG/ML VIAL SLOW IVP PRN (15:45)
[2021-08-07] MEDS ORDERED: Ondansetron PF 4 MG/2 ML Vial IVP PRN (15:45)
== END 2021-08-07 16:33 | disposition expired | DRG 951 ==
LOC: CCU 15:23
PROVIDERS: ADMIT Family Medicine; ATTEND Family Medicine
DX: Z51.5 Encounter for palliative care (principal); I62.9 Nontraumatic intracranial hemorrhage, unspecified; D64.9 Anemia, unspecified; I48.91 Unspecified atrial fibrillation; I50.9 Heart failure, unspecified; Z85.3 Personal history of malignant neoplasm of breast; N28.9 Disorder of kidney and ureter, unspecified
CPT/HCPCS: J2060; J2270